=== PATIENT | female | born 1945 | race Caucasian/White ===

== ENCOUNTER 2018-05-09 09:37 | Inpatient (IN) | payer MEDICARE, BC ==
[2018-05-09] MEDS ORDERED: methylPREDNISolone Sod Succ/PF 125 MG/2 ML VIAL ONE (09:58)
[2018-05-09] MEDS ORDERED: Acetaminophen 500 MG TAB ONE (10:00)
[2018-05-09 10:03] LABS: Hemoglobin 13.6 g/dL (12.0-16.0); Mean Corpuscular HGB CONC 34.2 g/dL (32.0-36.0); Mean Corpuscular Hemoglobin 33.2 pg (27.0-31.0); Mean Corpuscular Volume 97.1 fL (78.0-98.0); Mean Platelet Volume 6.8 fL (7.4-10.4); Platelet Count 267 thou/uL (130-400); White Blood Cell (WBC) Count 19.5 thou/uL (4.8-10.8)
[2018-05-09 10:09] LABS: Bilirubin Negative (Negative); Blood, Urine Large (Negative); Clarity TURBID (Clear); Glucose, Urine (Dipstick) Negative (Negative); Leukocyte Large (Negative); Nitrite Negative (Negative); Protein, Urine (Dipstick) 300 mg/dL (Neg-Trace); Specific Gravity, Urine 1.014 (1.002-1.036); Urobilinogen 0.2 mg/dL (0.2-1.0)
--- NOTE | 2018-05-09 10:14 | RAD ---
PORTABLE CHEST ONE VIEW: Date: 05-09-18 Time: 9:49 a.m. History: Fever. FINDINGS: Comparison is made with of 08-25-14. The heart size is borderline. The right hemidiaphragm is elevated. The lungs are well expanded withou t lobar consolidation, pneumothorax, evelia edema, or pleural effusions. Calcified granuloma in the le ft upper lobe is again seen. IMPRESSION: No acute process. POS: OFF
[2018-05-09 10:16] LABS: Pathc Cast-AUWi Flag 48.13 (0-2.49); Yeast-AUWi Flag 155.6 (0-25.0)
[2018-05-09] MEDS ORDERED: Ondansetron HCl/PF 4 MG/2 ML Vial ONE (10:18)
[2018-05-09 10:23] LABS: Band 16 % (5-11); Lymphocytes 14 % (21-51); MDiff Complete? YES; Monocytes 7 % (0-10); Neutrophil 63 % (42-75)
[2018-05-09 10:26] LABS: Bacteria/HPF 4+ HPF (None Seen); Hyaline Casts/LPF NONE SEEN LPF (0-3 Hyaline); Other Casts/LPF None Seen LPF (0-3 Hyaline); RBC/HPF GREATER THAN 50-TNTC HPF (0-3); Yeast-All Forms None Seen HPF (None Seen)
[2018-05-09] MEDS ORDERED: Piperacillin/Tazobactam 3.375 GM VIAL ONE (10:26)
[2018-05-09 10:27] LABS: ALT (SGPT) 89 U/L (8-55); AST (SGOT) 105 U/L (5-34); Alkaline Phosphatase 75 U/L (40-150); Anion Gap 24 mmol/L (10-20); BUN (Urea Nitrogen) 47 mg/dL (9.8-20.1); Bilirubin, Total 1.8 mg/dL (0.2-1.2); CK (CPK) 632 U/L (29-168); Calc. Creatinine Clearance 0 mL/min (70-130); Calcium 10.5 mg/dL (7.8-10.44); Carbon Dioxide 15 mmol/L (23-31); Chloride 98 mmol/L (98-107); Estimated GFR-MDRD 11; Globulin 2.8 g/dL (2.4-3.5); Magnesium 1.2 mg/dL (1.6-2.6); Potassium 4.3 mmol/L (3.5-5.1); Protein, Total 6.8 g/dL (6.0-8.3); Sodium 133 mmol/L (136-145)
[2018-05-09 10:31] LABS: Troponin I 0.043 ng/mL (< 0.028)
[2018-05-09 10:37] LABS: Glucose 57 mg/dL (83-110)
[2018-05-09 10:38] LABS: CKMB 7.6 ng/mL (0-6.6)
[2018-05-09] MEDS ORDERED: Dextrose 50% Abboject 50 ML SYRINGE ONE ×2 (10:47→10:49)
[2018-05-09] MEDS ORDERED: Norepinephrine 8 MG/0.9% NS 250 ML ONE (10:47)
[2018-05-09] MEDS ORDERED: Gentamicin Sulfate 360 MG, Admixture Fee 1 EACH in Sodium Chloride 0.9% 100 ML IVPB SCH (11:00)
--- NOTE | 2018-05-09 11:33 | RAD ---
CHEST ONE VIEW: History: Chest pain. Line placement. Comparison: Earlier exam, same date. FINDINGS: Tip of a right internal jugular central venous catheter projects over the superior vena cava. No evid ence of pneumothorax. Pulmonary vasculature is now more engorged. Defibrillator patches overlie each side of the chest. IMPRESSION: 1. Right internal jugular central venous catheter is in good radiographic position. 2. Pulmonary vascular congestion. POS: [facility]
[2018-05-09 11:46] LABS: Actual Bicarbonate (HCO3a) 11.4 mEq/L (22-28); CO2 Tension 22.3 mmHg (35.0-45.0); O2 Tension (PaO2) 70.1 mmHg (> 70.0); pH, Arterial 7.33 (7.35-7.45)
[2018-05-09] MEDS ORDERED: Sodium Bicarb 50 MEQ/50 ML Abboject 8.4% SYRINGE ONE (11:46)
[2018-05-09] MEDS ORDERED: Sodium Bicarbonate 2.5 MEQ/5 ML VIAL ONE (11:46)
[2018-05-09 11:47] LABS: Analyzer IN Cardio ER; Base Excess (BEa) -12.7 mEq/L (-2.0 to +3.0); Calcium, Ionized 1.1 mmol/L (1.12-1.30); Carboxyhemoglobin (COHb) 0.3 gm% (0.0-3.0); Hemoglobin (Hb) 11.3 g/dL (12.0-16.0); Potassium - ABG Lab 3.5 mmol/L (3.70-5.30)
[2018-05-09 11:48] LABS: ALV-art Gradient 50.915 (0-20); Puncture Site LRA
[2018-05-09] MEDS ORDERED: Loratadine 10 MG TAB PO PRN (12:56)
[2018-05-09] MEDS ORDERED: Ondansetron HCl/PF 4 MG/2 ML Vial IVP PRN (12:56)
[2018-05-09] MEDS ORDERED: cloNIDine 0.1 MG TAB PO PRN (12:56)
[2018-05-09] MEDS ORDERED: Mag-Al 1200 mg/1200 mg/30 ML UDCUP PO PRN (12:56)
[2018-05-09] MEDS ORDERED: hydrALAZINE 20 MG/ML VIAL SLOW IVP PRN (12:56)
[2018-05-09] MEDS ORDERED: Senokot 8.6 MG TAB PO PRN (12:56)
[2018-05-09] MEDS ORDERED: Calcium Carbonate 500 MG ChewTAB PO PRN (12:56)
[2018-05-09] MEDS ORDERED: Diabetic Tussin 200 MG/10 ML UDCUP PO PRN (12:56)
[2018-05-09] MEDS ORDERED: Benzonatate 100 MG CAP PO PRN (12:56)
[2018-05-09] MEDS ORDERED: Bisacodyl 5 MG TAB PO PRN (12:56)
[2018-05-09] MEDS ORDERED: Nitroglycerin 0.4 MG TAB (25 Tab Bottle) SL PRN (12:56)
--- NOTE | 2018-05-09 13:05 | PDOC.PULCN ---
<Raz Price - Last Filed: 05/09/18 13:59> Pulmonology Consult: HPI - Date of Consult Date: 05/09/18 Time: 13:00 - Consult Details Reason for Consult: septic shock Requesting Physician: Maria Guadalupe - History of Present Illness HPI: BASILIO PARRA is a 72 year-old F admitted with septic shock. She has PMH including Unicoi's and Hypothyroidism. She was diagnosed with UTI at acute care yesterday. Then this morning the son found her at home acting lethargic and brought her to the ER. Upon arrival to the ER she passed out while in the wheelchair being transferred into the ED. Patient states she has had nausea and vomiting for 2 days. She denies shortness of breath, chest pain, or abdomenal pain. She had mild diarrhea for the last 2 days. She is A&Ox3 at time of exam. 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) Pulmonology Consult: Meds - Medications MAR Reviewed: Yes Medications: Current Medications Gentamicin Sulfate 360 mg/Miscellaneous Medication 1 each/ Sodium Chloride 109 mls @ 109 mls/hr IVPB NOW RODOLFO Stop: 05/09/18 14:00 - Allergies Allergies/Adverse Reactions: Allergies Allergy/AdvReac Type Severity Reaction Status Date / Time ciprofloxacin [From Cipro] Allergy Verified 08/25/14 09:37 propoxyphene napsylate Allergy Verified 08/25/14 09:37 [From Darvocet-N 100] Pulmonology Consult: PE - Physical Exam Constitutional: NAD Deviation from normal: dry oral mucosa Cardiovascular: RRR, no significant murmur Respiratory: clear to auscultation anteriorly, decreased breath sounds. negative: wheezes Gastrointestinal: soft, non-tender, no distention, positive bowel sounds Musculoskeletal: no edema, pulses present Neurological: non-focal, moves all 4 limbs Psychiatric: A&O x 3 Skin: no rash, cap refill <2 seconds Deviation from normal: moderate skin tenting Pulmonology Consult: Results - Labs Result Diagrams: 05/09/18 09:41 05/09/18 09:41 - ABG Interpretation ABG Results: ABG pH 7.33 (7.35-7.45) L 05/09/18 11:37 ABG pCO2 22.3 mmHg (35.0-45.0) L* 05/09/18 11:37 ABG O2 Sat Calc/Timo 92.7 % (94.0-98.0) L 05/09/18 11:37 ABG Base Excess -12.7 mEq/L (-2.0 to +3.0) L 05/09/18 11:37 Pulmonology Consult: A/P - Time Time: 50% of the time was spent in coordination of care (as documented) at patient's floor/unit and/or counseling patient. Time with Patient: greater than 50 minutes - Plan Plan: This is a critically ill 72 yo F being admitted for septic shock likely caused by adrenal crisis + UTI. 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 8.49, last Cr was 0.74 in 2013 - Dehydration - mag 1.2, replete Infection (Urosepsis) - ceftriaxone - BC, Ucx pending - trend lactic acid Endo (Adrenal Crisis) - Hx of tony's, on prednisone 5mg at home - Hydrocortisone 50mg q6hr - likely main source of hypotension, then exacerbated by UTI Code status: full PPx: heparin Diet: regular Dispo: >2 days <Raji Garcia - Last Filed: 05/09/18 18:45> Pulmonology Consult: HPI - History of Present Illness HPI: BASILIO PARRA is a 72 year-old F Pulmonology Consult: Meds - Medications Medications: Current Medications Acetaminophen (Tylenol) 650 mg PO Q4H PRN PRN Reason: Headache/Fever or Pain Al Hydroxide/Mg Hydroxide (Maalox) 30 ml PO Q6H PRN PRN Reason: Heartburn or Indigestion Albuterol/Ipratropium (Duoneb) 3 ml NEB [id number] PRN PRN Reason: SOB &/or Wheezing Benzonatate (Tessalon) 100 mg PO Q4H PRN PRN Reason: Cough Bisacodyl (Dulcolax) 10 mg PO DAILYPRN PRN PRN Reason: Constipation Calcium Carbonate (Tums) 1,000 mg PO Q4H PRN PRN Reason: Heartburn or Indigestion Clonidine (Catapres) 0.1 mg PO Q4H PRN PRN Reason: Systolic BP > 160 Dextrose/Water (Dextrose 50%) 25 gm SLOW IVP PRN PRN PRN Reason: Hypoglycemia Famotidine (Pepcid) 20 mg PO 2100 RODOLFO Glucagon (Glucagon) 1 mg IM PRN PRN PRN Reason: Hypoglycemia Guaifenesin (Robitussin Sf) 200 mg PO Q4H PRN PRN Reason: Cough Heparin Sodium (Porcine) (Heparin) 5,000 units SC TID [facility] Last Admin: 05/09/18 14:34 Dose: 5,000 units Hydralazine HCl (Apresoline) 10 mg SLOW IVP Q4H PRN PRN Reason: Systolic BP > 170 Hydrocortisone Sodium Succinate (Solu-Cortef) 50 mg IVP Q6HR [facility] Last Admin: 05/09/18 17:04 Dose: 50 mg Sodium Chloride (Normal Saline 0.9%) 1,000 mls @ 125 mls/hr IV .Q8H [facility] Last Admin: 05/09/18 14:24 Dose: 1,000 mls Norepinephrine Bitartrate (Levophed) 250 mls @ 0 mls/hr IVPB PRN PRN; Protocol PRN Reason: To maintain MAP > 65 Last Admin: 05/09/18 17:30 Dose: 250 mls Ceftriaxone Sodium 2 gm/ (Sodium Chloride) 100 mls @ 200 mls/hr IVPB Q24HR [facility] Dextrose/Water (D5w) 1,000 mls @ 0 mls/hr IV .Q0M PRN PRN Reason: Hypoglycemia Potassium Chloride 40 meq/ (Sodium Chloride) 270 mls @ 135 mls/hr IVPB ASDIR PRN PRN Reason: FOR SERUM K+ 2.5 - 3.5 Potassium Chloride 40 meq/ (Device) 100 mls @ 50 mls/hr IVPB ASDIR PRN PRN Reason: FOR SERUM K+ 2.5 - 3.5 Magnesium Sulfate 1 gm/ Sodium (Chloride) 102 mls @ 102 mls/hr IV PRN PRN PRN Reason: MAG LEVEL 1.4 - 2.0 Magnesium Sulfate 2 gm/ Device 100 mls @ 100 mls/hr IVPB ASDIR PRN PRN Reason: MAGNESIUM < 1.4 Potassium Phosphate 9 mmol/ (Sodium Chloride) 103 mls @ 25.75 mls/hr IVPB ASDIR PRN PRN Reason: Phosphate 1.0-1.8 Potassium Phosphate 12 mmol/ (Sodium Chloride) 254 mls @ 63.5 mls/hr IV ASDIR PRN PRN Reason: Serum phosphate 0.5-0.9 Potassium Phosphate 15 mmol/ (Sodium Chloride) 255 mls @ 63.75 mls/hr IV ASDIR PRN PRN Reason: Serum Phos < 0.5 Levothyroxine Sodium (Synthroid) 75 mcg PO 0600 RODOLFO Loratadine (Claritin) 10 mg PO DAILYPRN PRN PRN Reason: Sinus Symptoms Magnesium Oxide (Magnesium Oxide) 400 mg PO BIDPRN PRN PRN Reason: FOR SERUM MAG 1.4 - 2.0 Magnesium Oxide (Magnesium Oxide) 800 mg PO PRN PRN PRN Reason: FOR SERUM MAG < 1.4 Miscellaneous Medication (Phos-Nak) 1 pkt PO TIDPRN PRN PRN Reason: FOR PHOS LEVEL 1.0 - 1.8 Miscellaneous Medication (Phos-Nak) 2 pkt PO TIDPRN PRN PRN Reason: FOR PHOS LEVEL 0.5 - 1.0 Nitroglycerin (Nitrostat) 0.4 mg SL Q5MIN PRN PRN Reason: Chest Pain Ccu Electrolyte (Replacement Protocol) 0 each FS PRN PRN PRN Reason: FOR ELECTROLYTE REPLACEMENT Ondansetron HCl (Zofran) 4 mg IVP Q6H PRN PRN Reason: Nausea/Vomiting Last Admin: 05/09/18 17:14 Dose: 4 mg Potassium Chloride (K-Dur) 40 meq PO ASDIR PRN PRN Reason: FOR SERUM K+ 2.5 - 3.5 Potassium Chloride (Klor-Con) 40 meq PER TUBE ASDIR PRN PRN Reason: FOR SERUM K+ 2.5-3.5 Senna (Senokot) 2 tab PO HSPRN PRN PRN Reason: Constipation Tramadol HCl (Ultram) 50 mg PO Q4H PRN PRN Reason: Moderate Pain (4-6) Last Admin: 05/09/18 17:13 Dose: 50 mg Pulmonology Consult: Results - Labs Result Diagrams: 05/09/18 09:41 05/09/18 09:41 - ABG Interpretation ABG Results: ABG pH 7.33 (7.35-7.45) L 05/09/18 11:37 ABG pCO2 22.3 mmHg (35.0-45.0) L* 05/09/18 11:37 ABG O2 Sat Calc/Timo 92.7 % (94.0-98.0) L 05/09/18 11:37 ABG Base Excess -12.7 mEq/L (-2.0 to +3.0) L 05/09/18 11:37 Pulmonology Consult: A/P - Time Time: 50% of the time was spent in coordination of care (as documented) at patient's floor/unit and/or counseling patient. Attending Addendum - Attending Addendum Date/Time: 05/09/181844 I personally evaluated the patient and discussed the management with Dr. Price I agree with the History, Examination, Assessment and Plan documented above with any addition or exceptions noted below. 70 minutes have been devoted to this patient in various activities. I personally reviewed all imaging studies and laboratory data noted within this document. For 50% of this time, I was interacting with the patient at bedside or coordinating care with the care team. For the remainder of the time, I was immediately available to the patient in the hospital unit.
[2018-05-09 13:15] LABS: Troponin I 0.033 ng/mL (< 0.028)
[2018-05-09] MEDS ORDERED: cefTRIAXone\\ROCEPHIN 2 GM in Sodium Chloride 0.9% 100 ML IVPB SCH (13:15)
[2018-05-09] MEDS ORDERED: Hydrocortisone Sod Succ/PF 50 MG in Sodium Chloride 0.9% 50 ML IVPB SCH (13:15)
[2018-05-09] MEDS ORDERED: CCU Electrolyte Replacement 1 EACH IVPB ONE (13:26)
[2018-05-09] MEDS ORDERED: Activase 2 MG VIAL CATH SCH (13:30)
[2018-05-09] MEDS ORDERED: Dextrose 50% Abboject 50 ML SYRINGE SLOW IVP PRN (14:01)
[2018-05-09] MEDS ORDERED: Dextrose 5% in Water 1,000 ML IV PRN (14:01)
[2018-05-09 14:23] LABS: Lactic Acid 3.2 mmol/L (0.5-2.2)
[2018-05-09] MEDS: Sodium Chloride 0.9% 1,000 ML IV SCH ×2 (14:24→20:33)
[2018-05-09] MEDS: Heparin 5,000 UNITS/ML VIAL SC SCH ×2 (14:34→20:32)
[2018-05-09] MEDS ORDERED: CCU Electrolyte Replacement 1 EACH FS ONE (14:50)
[2018-05-09] MEDS ORDERED: Potassium Chloride 20 MEQ TAB PO PRN (14:54)
[2018-05-09] MEDS ORDERED: Potassium Chloride 40 MEQ in Premix Bag 1 BAG IVPB PRN (14:54)
[2018-05-09] MEDS ORDERED: Potassium Phosphate 12 MMOL in Sodium Chloride 0.9% 250 ML 250 ML IV PRN (14:54)
[2018-05-09] MEDS ORDERED: Magnesium 2 GM/NS 0.9% 100 ML 2 GM in Premix Bag 1 BAG IVPB PRN (14:54)
[2018-05-09] MEDS ORDERED: Potassium Chloride 40 MEQ in Sodium Chloride 0.9% 250 ML 250 ML IVPB PRN (14:54)
[2018-05-09] MEDS ORDERED: Potassium Phosphate 9 MMOL in Sodium Chloride 0.9% 100 ML IVPB PRN (14:54)
[2018-05-09] MEDS ORDERED: CCU ELECTROLYTE REPLACEMENT PROTOCOL FS PRN (14:54)
[2018-05-09] MEDS ORDERED: Potassium Phosphate 15 MMOL in Sodium Chloride 0.9% 250 ML 250 ML IV PRN (14:54)
[2018-05-09] MEDS ORDERED: Magnesium Oxide 400 MG TAB PO PRN ×2 (14:54)
--- NOTE | 2018-05-09 15:37 | HP ---
DATE OF ADMISSION: 05/09/2018 PRIMARY CARE PHYSICIAN: Elvia Rebollar M.D. CHIEF COMPLAINT: Lethargy and urinary tract infection. HISTORY OF PRESENT ILLNESS: Ms. Pinon is a pleasant 72-year-old female with history of Lawrence's di sease and hypothyroidism, who presented to the emergency room with the above-mentioned complaint. Hi story is mainly obtained by the patient herself who is still not feeling very well. Electronic medic al records have been reviewed and the case has been discussed with emergency room physician, Dr. Claudia rousseau. Ms. Pinon reported that she has recently been treated for a urinary tract infection and finished ant ibiotics about 2 weeks ago. For the last week or so, she started to feel severe pain and pressure in her suprapubic region and has been having on and off subjective fevers and chills. She has been fee ling poorly with poor appetite and increased weakness. She was found to be very lethargic by her son this morning and he brought her to the emergency room. En route to the ER, she passed out. The pat [facility] also reports that she has had multiple episodes of vomiting in the last 2 days or so. Upon arri laquita, she was altered and hypotensive. She was tachycardic to 115 and her initial blood pressure was in the 50s over 40s. She was emergently resuscitated with IV fluids and was started on pressors with norepinephrine. Blood work was done which showed leukocytosis with WBCs of 19.5 with 16% bands. [facility] chemistries showed lactic acidosis with lactic acid of 7.5, acute renal insufficiency with creati nine of 3.99 resulting GFR 11 as well as elevated CK 632. Her urinalysis was consistent with signifi cant urinary tract infection. She underwent chest x-ray which did not show any evidence of pneumonia or congestion. She was given empiric IV antibiotic in the form of gentamicin, vancomycin and Zosyn in the emergency room. She improved quite a bit and is back to baseline with her mentation. She is awake, alert, oriented x3, though still feels poorly and very weak. She is now being admitted to the hospital with sepsis and septic shock with acute renal failure and u rinary tract infection. She has also received a dose of Solu-Medrol in the emergency room. Otherwise, she denies any other recent illnesses. 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 PAST MEDICAL HISTORY: 1. Berks's disease. 2. Hypothyroidism. 3. Asthma. PAST SURGICAL HISTORY: 1. section x2. 2. Cholecystectomy in 1970s. 3. Hysterectomy. 4. Tonsillectomy. 5. Ablation for PVCs. ALLERGIES: PROPOXYPHENE and CIPROFLOXACIN. CURRENT MEDICATIONS: As follows: Levothyroxine 75 mcg daily and prednisone 5 mg daily. FAMILY HISTORY: Father with GA at the age of 36. 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 She is very independent with her ADLs and IADLs. Lives with family. No history of drug, tobacco or alcohol abuse. REVIEW OF SYSTEMS: A 12-point review of systems is done, it is negative except for those mentioned i n the history and physical. LABORATORY DATA: As above. ABGs were also done which showed pH of 7.33, pCO2 of 22, oxygen 70. Ser um chemistry shows sodium of 133, bicarbonate 15, anion gap 24, BUN 47, creatinine 3.99. Initial blo od sugar 57. Lactic acid 7.5. Calcium 10.5, magnesium 1.2, total bilirubin 1.8, AST 105, ALT 89, CK -MB 7.6, troponin 0.043, then 0.033. TSH normal. Urinalysis has multiple bacteria, wbc's, leukocyte esterase and blood. Chest x-ray by my review has no evidence to suggest pleural effusion, edema or infiltrate. PHYSICAL EXAMINATION: VITAL SIGNS: Most recent vital signs, temperature 98.6, pulse of 87, respirations 17, saturating 100 % on 3 liters nasal cannula, blood pressure 102/47. GENERAL: She appears very pale, weak and sick, but awake, alert, oriented x3. HEENT: Mucous membrane is very dry. No oropharyngeal exudate or erythema. Head is normocephalic, a traumatic. Pupils equal, reactive to light and accommodation. Extraocular movement intact. NECK: Supple without any lymphadenopathy, JVD or bruit. CHEST: Clear to auscultation without any wheezing, rales or rhonchi. Rhythm is regular without any murmur, rubs or gallops. ABDOMEN: Soft, nontender, nondistended, positive bowel sounds. Mild suprapubic tenderness is notice d. SKIN: Free of any rashes or bruises. Feels warm and dry to touch. PSYCHIATRIC: Normal affect. IMPRESSION AND PLAN: 1. Sepsis with septic shock. The patient has been adequately resuscitated with 2 liters of IV fluid s in the emergency room and she failed to respond to that. Since then, she has been started on IV no repinephrine, which we will continue and titrate to keep MAP over 65. We will continue intravenous f luids for now and admit her to critical care unit and request consultation with Critical Care physici an, Dr. Garcia, as well. Source is likely urinary tract infection. She will be treated with broad- spectrum IV antibiotics and we will follow the results of the urine and blood culture. The patient m ost likely is also bacteremic. Stat echocardiogram was done in the emergency room, and we will follo w the results of that. The patient herself denies any cardiac history. We will also continue IV lily roids in the form of IV Solu-Medrol given her history of Lawrence's disease and acute adrenal insuffic iency in the light of sepsis. 2. Acute renal insufficiency secondary to #1. The patient's baseline creatinine just last week was 0.93. She will be continued on IV fluids and we will monitor renal function on a daily basis. We wi ll avoid any nephrotoxic medication. 3. Anion gap metabolic acidosis. This is secondary to extreme dehydration, poor p.o. intake, renal failure and sepsis. Continue IV fluid hydration. The patient has received 1 dose of IV bicarbonate in the emergency room. 4. Lactic acidosis. This is secondary to severe sepsis. Repeat lactic acid is 3.2. Continue IV fl uids and IV antibiotics. 5. Rhabdomyolysis, likely secondary to ongoing illness and bed bound status. Recheck in the morning and continue IV fluid resuscitation. 6. Hypomagnesemia. We will replace and recheck in the morning. 7. Elevated liver enzymes. We will continue to trend the liver enzymes and if they do not start to go down, we will obtain a right upper quadrant ultrasound. 8. Elevated troponin. This is likely demand ischemia from ongoing severe sepsis. Echocardiogram yoo s been ordered and we will follow the serial cardiac enzymes for now. 9. Hypothyroidism. We will resume her home medications. TSH was checked and was normal. 10. Berks's disease. The patient will be on IV steroids for the acute crisis at this time. 11. Code status: FULL CODE. Discussed with the patient and her son in detail at bedside. 12. Deep venous thrombosis and gastrointestinal prophylaxis and p.r.n. medication orders. DISPOSITION: Ms. Pnion is currently being admitted to the hospital in the critical care unit for se jaye sepsis with acute renal failure and septic shock. Estimated length of stay at this time is 2-3 midnights. Total time spent in the care of this critically ill patient is 45 minutes.
[2018-05-09 16:12] LABS: Troponin I 0.058 ng/mL (< 0.028)
[2018-05-09] MEDS: Hydrocortisone Sod Succ/PF 100 mg/2 ml Vial IVP SCH ×2 (17:04→23:45)
[2018-05-09] MEDS: traMADol HCl 50 MG TAB PO PRN (17:13)
[2018-05-09] MEDS: Ondansetron HCl/PF 4 MG/2 ML Vial IVP PRN (17:14)
[2018-05-09] MEDS: Norepinephrine 8 MG/0.9% NS 250 ML IVPB PRN (17:30)
[2018-05-09] MEDS: Famotidine 20 MG TAB PO SCH (20:32)
[2018-05-10] MEDS: traMADol HCl 50 MG TAB PO PRN ×2 (01:30→18:33)
[2018-05-10 03:59] LABS: ALT (SGPT) 93 U/L (8-55); AST (SGOT) 100 U/L (5-34); Albumin 3.1 g/dL (3.4-4.8); Alkaline Phosphatase 83 U/L (40-150); Anion Gap 12 mmol/L (10-20); BUN (Urea Nitrogen) 32 mg/dL (9.8-20.1); Bilirubin, Total 1.2 mg/dL (0.2-1.2); Calc. Creatinine Clearance 21 mL/min (70-130); Carbon Dioxide 19 mmol/L (23-31); Chloride 107 mmol/L (98-107); Estimated GFR-MDRD 19; Globulin 2.2 g/dL (2.4-3.5); Glucose 263 mg/dL (83-110); Magnesium 1.1 mg/dL (1.6-2.6); Potassium 4.8 mmol/L (3.5-5.1); Protein, Total 5.3 g/dL (6.0-8.3); Sodium 133 mmol/L (136-145)
[2018-05-10 04:39] LABS: Band 16 % (5-11); Hemoglobin 10.9 g/dL (12.0-16.0); Hypochromia SLIGHT = 6-15 cells (100X) (0-5/hpf); Lymphocytes 1 % (21-51); MDiff Complete? YES; Mean Corpuscular HGB CONC 35.7 g/dL (32.0-36.0); Mean Corpuscular Hemoglobin 34.3 pg (27.0-31.0); Mean Corpuscular Volume 96.1 fL (78.0-98.0); Mean Platelet Volume 6.4 fL (7.4-10.4); Monocytes 8 % (0-10); Neutrophil 75 % (42-75); PLT Morphology Comment Appears Adequate; Platelet Count 243 thou/uL (130-400); Red Blood Cell (RBC) Count 3.19 mill/uL (4.20-5.40); White Blood Cell (WBC) Count 24.8 thou/uL (4.8-10.8)
[2018-05-10] MEDS: Levothyroxine Sodium 75 MCG TAB PO SCH (05:35)
[2018-05-10] MEDS: Hydrocortisone Sod Succ/PF 100 mg/2 ml Vial IVP SCH ×3 (05:35→18:10)
[2018-05-10] MEDS: Sodium Chloride 0.9% 1,000 ML IV SCH ×4 (05:36→20:34)
[2018-05-10] MEDS: Acetaminophen 325 MG TAB PO PRN (05:36)
--- NOTE | 2018-05-10 07:50 | PRG ---
DATE OF SERVICE: 05/10/2018 SERVICE: Pulmonary Medicine INTERVAL HISTORY: The patient is doing fine from a respiratory standpoint. She denies any current c hest pain or vomiting overnight. She continues to have a little bit of nausea. That being said, she is tolerating some p.o. There has been no other interval change to her condition. PHYSICAL EXAMINATION: VITAL SIGNS: Afebrile, pulse 79, blood pressure 127/55, respirations 14, saturation 100% on 1 liter nasal cannula. GENERAL: The patient is awake, alert, in no apparent distress. LUNGS: Decent air entry. There is some dependent crackles present, but no rhonchi or wheezing appre ciated. HEART: Normal rate, regular. ABDOMEN: Soft, nontender, nondistended. Bowel sounds are positive. MUSCULOSKELETAL: No cyanosis or clubbing. There is no pitting in the bilateral lower extremities. NEUROLOGIC: Grossly nonfocal. LABORATORY DATA: WBC 24.8, hemoglobin 10.9, platelets 243,000. Neutrophil count is up trending with a stable band count. Creatinine 2.53, beautifully down trending, anion gap 12, which has resolved, bicarbonate 19, which is improved, sodium 133 and stable. AST and ALT are roughly stable. Lactate 3 .2, beautifully down trending, cardiac enzymes are gently up trending. Urinalysis is consistent with a possible urinary tract infection. She has 2 out of 2 blood cultures positive for gram negative ro d, one of which is growing E. coli. IMAGING: Chest x-ray demonstrates a right IJ central venous catheter is in good position. There is no obvious acute cardiopulmonary abnormality identified. Interstitial markings are prominent, likely accentuated by low lung volumes. ASSESSMENT: 1. Septic shock secondary to Escherichia coli. 2. Bacteremia secondary to Escherichia coli. 3. Urinary tract infection. 4. Adrenal crisis. DISCUSSION AND PLAN: We will continue antibiotics and steroids. We will wean away the Levophed. On ce she is off of this medication, she can be transitioned out of the ICU to the telemetry unit. The elevated troponins are likely secondary to demand ischemia. Pulmonary will follow while she remains in the ICU, but when she transitions the floor, we will sign off.
[2018-05-10] MEDS ORDERED: Magnesium Sulfate 2 GM in Sodium Chloride 0.9% 100 ML IVPB PRN (08:30)
[2018-05-10] MEDS ORDERED: Dextrose 50% Abboject 50 ML SYRINGE SLOW IVP PRN (08:31)
[2018-05-10] MEDS ORDERED: Dextrose 5% in Water 1,000 ML IV PRN (08:31)
[2018-05-10] MEDS ORDERED: Enoxaparin Sodium 30 MG/0.3 ML SYRINGE SC SCH (09:00)
--- NOTE | 2018-05-10 09:01 | RAD ---
CHEST 1 VIEW: Date: 05/10/18 HISTORY: Chest pain. Dyspnea. COMPARISON: 05/09/18. FINDINGS: Cardiac silhouette is magnified by projection. Pulmonary vasculature upper limits of normal. Patchy r ight basilar infiltrate is stable. Right internal jugular central venous catheter remains in place. C alcified granulomata are consistent with healed granulomatous disease. IMPRESSION: Patchy right basilar infiltrate and other findings are stable. POS: [facility]
[2018-05-10] MEDS: cefTRIAXone\\ROCEPHIN 2 GM in Sodium Chloride 0.9% 100 ML IVPB SCH (09:07)
[2018-05-10] MEDS: Heparin 5,000 UNITS/ML VIAL SC SCH ×3 (09:08→20:33)
[2018-05-10] MEDS: Ondansetron HCl/PF 4 MG/2 ML Vial IVP PRN (09:08)
[2018-05-10] MEDS ORDERED: hydrALAZINE 20 MG/ML VIAL SLOW IVP PRN (09:34)
[2018-05-10] MEDS ORDERED: cloNIDine 0.1 MG TAB PO PRN (09:35)
[2018-05-10] MEDS: HumaLOG 300 UNITS/3 ML VIAL SC PRN ×5 (10:01→20:33)
[2018-05-10] MEDS: Norepinephrine 8 MG/0.9% NS 250 ML IVPB PRN (12:53)
--- NOTE | 2018-05-10 17:44 | PDOC.PN ---
- Subjective Encounter Start Date: 05/10/18 Encounter Start Time: 09:40 Pt sen for followup re: sepsis. Feels better. Denies chest pain, shortness of breath, fevers or chills. - Objective Resuscitation Status: Resuscitation Status FULL:Full Resuscitation MAR Reviewed: Yes Vital Signs & Weight: Vital Signs (12 hours) Temp Pulse Pulse Pulse Resp BP BP 05/10/18 15:12 76 17 05/10/18 12:43 114/57 L 05/10/18 12:01 97.7 F 75 16 05/10/18 10:24 74 65 114/51 L 104/56 L 05/10/18 09:35 66 16 05/10/18 08:00 97.5 F L 66 16 Pulse Ox Pulse Ox 05/10/18 15:12 05/10/18 12:43 99 05/10/18 12:01 97 05/10/18 10:24 05/10/18 09:35 100 05/10/18 08:00 100 Weight Weight 155 lb 9.6 oz Most Recent Monitor Data Heart Rate from ECG 82 NIBP 108/57 NIBP BP-Mean 65 Respiration from ECG 17 SpO2 95 I&O: 05/09/18 05/10/18 05/11/18 06:59 06:59 06:59 Intake Total 5259 670 Output Total 4140 475 Balance 1119 195 Result Diagrams: 05/10/18 03:24 05/10/18 03:24 Additional Labs: Accuchecks 05/10/18 05/10/18 05/09/18 12:06 09:12 21:07 POC Glucose 200 H 205 H 222 H EKG Reviewed by me: Yes (Tele: NSR) Phys Exam - Physical Examination Constitutional: NAD HEENT: moist MMs, sclera anicteric, oral pharynx no lesions, 2+ tonsils Neck: no nodes, no JVD, supple, full ROM Respiratory: no wheezing, no rales, no rhonchi, clear to auscultation bilateral Cardiovascular: RRR, no rub S1, S2 Gastrointestinal: soft, non-tender, no distention, positive bowel sounds Neurological: moves all 4 limbs Psychiatric: normal affect, A&O x 3 Dx/Plan (1) Septic shock Code(s): A41.9 - SEPSIS, UNSPECIFIED ORGANISM; R65.21 - SEVERE SEPSIS WITH SEPTIC SHOCK Status: Acute Comment: Improving, due to UTI and bacteremia. (2) Bacteremia Code(s): R78.81 - BACTEREMIA Status: Acute Comment: continue IV ceftriaxone (3) UTI (urinary tract infection) Status: Acute Comment: continue IV ceftriaxone (4) [place] disease Code(s): E27.1 - PRIMARY ADRENOCORTICAL INSUFFICIENCY Status: Chronic Comment: continue IV steroids (5) Hypothyroidism Code(s): E03.9 - HYPOTHYROIDISM, UNSPECIFIED Status: Chronic Comment: stable (6) Asthma Code(s): J45.909 - UNSPECIFIED ASTHMA, UNCOMPLICATED Status: Chronic Comment : stable - Plan * . Review of Systems - Review of Systems Constitutional: negative: fever, chills, sweats, weakness, malaise Respiratory: negative: Cough, Shortness of Breath, SOB with Excertion, Pleuritic Pain, Wheezing Cardiovascular: negative: chest pain, palpitations, orthopnea, paroxysmal nocturnal dyspnea, edema, light headedness Gastrointestinal: negative: Nausea, Vomiting, Abdominal Pain, Diarrhea, Constipation, Melena, Hematochezia Genitourinary: negative: Dysuria, Frequency, Incontinence, Hematuria, Retention Skin: negative: Rash, Lesions, Josue, Bruising - Medications/Allergies Allergies/Adverse Reactions: Allergies Allergy/AdvReac Type Severity Reaction Status Date / Time ciprofloxacin [From Cipro] Allergy Verified 08/25/14 09:37 propoxyphene napsylate Allergy Verified 08/25/14 09:37 [From Darvocet-N 100] Medications: Current Medications Acetaminophen (Tylenol) 650 mg PO Q4H PRN PRN Reason: Headache/Fever or Pain Last Admin: 05/10/18 05:36 Dose: 650 mg Al Hydroxide/Mg Hydroxide (Maalox) 30 ml PO Q6H PRN PRN Reason: Heartburn or Indigestion Albuterol/Ipratropium (Duoneb) 3 ml NEB [id number] PRN PRN Reason: SOB &/or Wheezing Last Admin: 05/10/18 15:12 Dose: 3 ml Benzonatate (Tessalon) 100 mg PO Q4H PRN PRN Reason: Cough Bisacodyl (Dulcolax) 10 mg PO DAILYPRN PRN PRN Reason: Constipation Calcium Carbonate (Tums) 1,000 mg PO Q4H PRN PRN Reason: Heartburn or Indigestion Clonidine (Catapres) 0.1 mg PO Q4H PRN PRN Reason: Systolic BP > 160 Dextrose/Water (Dextrose 50%) 25 gm SLOW IVP PRN PRN PRN Reason: Hypoglycemia Famotidine (Pepcid) 20 mg PO 2100 COUNTS INCLUDE 234 BEDS AT THE [facility] Last Admin: 05/09/18 20:32 Dose: 20 mg Glucagon (Glucagon) 1 mg IM PRN PRN PRN Reason: Hypoglycemia Guaifenesin (Robitussin Sf) 200 mg PO Q4H PRN PRN Reason: Cough Heparin Sodium (Porcine) (Heparin) 5,000 units SC TID COUNTS INCLUDE 234 BEDS AT THE [facility] Last Admin: 05/10/18 15:42 Dose: 5,000 units Hydralazine HCl (Apresoline) 10 mg SLOW IVP Q4H PRN PRN Reason: Systolic BP > 170 Hydrocortisone Sodium Succinate (Solu-Cortef) 50 mg IVP Q6HR COUNTS INCLUDE 234 BEDS AT THE [facility] Last Admin: 05/10/18 12:27 Dose: 50 mg Norepinephrine Bitartrate (Levophed) 250 mls @ 0 mls/hr IVPB PRN PRN; Protocol PRN Reason: To maintain MAP > 65 Last Admin: 05/10/18 12:53 Dose: 250 mls Ceftriaxone Sodium 2 gm/ (Sodium Chloride) 100 mls @ 200 mls/hr IVPB Q24HR COUNTS INCLUDE 234 BEDS AT THE [facility] Last Admin: 05/10/18 09:07 Dose: 100 mls Dextrose/Water (D5w) 1,000 mls @ 0 mls/hr IV .Q0M PRN PRN Reason: Hypoglycemia Potassium Chloride 40 meq/ (Sodium Chloride) 270 mls @ 135 mls/hr IVPB ASDIR PRN PRN Reason: FOR SERUM K+ 2.5 - 3.5 Potassium Chloride 40 meq/ (Device) 100 mls @ 50 mls/hr IVPB ASDIR PRN PRN Reason: FOR SERUM K+ 2.5 - 3.5 Magnesium Sulfate 1 gm/ Sodium (Chloride) 102 mls @ 102 mls/hr IV PRN PRN PRN Reason: MAG LEVEL 1.4 - 2.0 Potassium Phosphate 9 mmol/ (Sodium Chloride) 103 mls @ 25.75 mls/hr IVPB ASDIR PRN PRN Reason: Phosphate 1.0-1.8 Potassium Phosphate 12 mmol/ (Sodium Chloride) 254 mls @ 63.5 mls/hr IV ASDIR PRN PRN Reason: Serum phosphate 0.5-0.9 Potassium Phosphate 15 mmol/ (Sodium Chloride) 255 mls @ 63.75 mls/hr IV ASDIR PRN PRN Reason: Serum Phos < 0.5 Sodium Chloride (Normal Saline 0.9%) 1,000 mls @ 75 mls/hr IV .[id number] RODOLFO Last Admin: 05/10/18 15:48 Dose: Not Given Magnesium Sulfate 2 gm/ Sodium (Chloride) 104 mls @ 104 mls/hr IVPB ASDIR PRN PRN Reason: MAGNESIUM < 1.4 Last Admin: 05/10/18 09:08 Dose: 104 mls Insulin Human Lispro (Humalog) 0 units SC .MILD SLIDING SCALE PRN PRN Reason: Mild Correctional Scale Last Admin: 05/10/18 16:25 Dose: 4 units Levothyroxine Sodium (Synthroid) 75 mcg PO 0600 RODOLFO Last Admin: 05/10/18 05:35 Dose: 75 mcg Loratadine (Claritin) 10 mg PO DAILYPRN PRN PRN Reason: Sinus Symptoms Magnesium Oxide (Magnesium Oxide) 400 mg PO BIDPRN PRN PRN Reason: FOR SERUM MAG 1.4 - 2.0 Magnesium Oxide (Magnesium Oxide) 800 mg PO PRN PRN PRN Reason: FOR SERUM MAG < 1.4 Miscellaneous Medication (Phos-Nak) 1 pkt PO TIDPRN PRN PRN Reason: FOR PHOS LEVEL 1.0 - 1.8 Miscellaneous Medication (Phos-Nak) 2 pkt PO TIDPRN PRN PRN Reason: FOR PHOS LEVEL 0.5 - 1.0 Nitroglycerin (Nitrostat) 0.4 mg SL Q5MIN PRN PRN Reason: Chest Pain Ccu Electrolyte (Replacement Protocol) 0 each FS PRN PRN PRN Reason: FOR ELECTROLYTE REPLACEMENT Ondansetron HCl (Zofran) 4 mg IVP Q6H PRN PRN Reason: Nausea/Vomiting Last Admin: 05/10/18 09:08 Dose: 4 mg Potassium Chloride (K-Dur) 40 meq PO ASDIR PRN PRN Reason: FOR SERUM K+ 2.5 - 3.5 Potassium Chloride (Klor-Con) 40 meq PER TUBE ASDIR PRN PRN Reason: FOR SERUM K+ 2.5-3.5 Senna (Senokot) 2 tab PO HSPRN PRN PRN Reason: Constipation Tramadol HCl (Ultram) 50 mg PO Q4H PRN PRN Reason: Moderate Pain (4-6) Last Admin: 05/10/18 01:30 Dose: 50 mg
[2018-05-10] MEDS: Famotidine 20 MG TAB PO SCH (20:34)
[2018-05-10] MEDS ORDERED: diphenhydrAMINE 25 MG CAP PO SCH (22:30)
[2018-05-11] MEDS: Hydrocortisone Sod Succ/PF 100 mg/2 ml Vial IVP SCH ×5 (00:25→23:20)
[2018-05-11 05:54] LABS: ALT (SGPT) 78 U/L (8-55); AST (SGOT) 70 U/L (5-34); Alkaline Phosphatase 101 U/L (40-150); Anion Gap 13 mmol/L (10-20); BUN (Urea Nitrogen) 26 mg/dL (9.8-20.1); Bilirubin, Total 0.4 mg/dL (0.2-1.2); Calc. Creatinine Clearance 32 mL/min (70-130); Calcium 7.4 mg/dL (7.8-10.44); Carbon Dioxide 18 mmol/L (23-31); Chloride 109 mmol/L (98-107); Estimated GFR-MDRD 29; Globulin 2.3 g/dL (2.4-3.5); Glucose 150 mg/dL (83-110); Potassium 4.3 mmol/L (3.5-5.1); Protein, Total 5.3 g/dL (6.0-8.3); Sodium 136 mmol/L (136-145)
[2018-05-11] MEDS: Levothyroxine Sodium 75 MCG TAB PO SCH (06:12)
[2018-05-11 06:27] LABS: Band 30 % (5-11); Hemoglobin 9.4 g/dL (12.0-16.0); Lymphocytes 6 % (21-51); MDiff Complete? YES; Mean Corpuscular HGB CONC 34.7 g/dL (32.0-36.0); Mean Corpuscular Hemoglobin 33.7 pg (27.0-31.0); Mean Corpuscular Volume 97.1 fL (78.0-98.0); Mean Platelet Volume 6.7 fL (7.4-10.4); Monocytes 5 % (0-10); Neutrophil 59 % (42-75); PLT Morphology Comment Appears Adequate; Platelet Count 215 thou/uL (130-400); RBC Distribution Width 12.3 % (11.5-14.5); Red Blood Cell (RBC) Count 2.77 mill/uL (4.20-5.40); White Blood Cell (WBC) Count 17.1 thou/uL (4.8-10.8)
[2018-05-11] MEDS: cefTRIAXone\\ROCEPHIN 2 GM in Sodium Chloride 0.9% 100 ML IVPB SCH (08:48)
[2018-05-11] MEDS: Heparin 5,000 UNITS/ML VIAL SC SCH ×3 (08:49→21:15)
[2018-05-11] MEDS: HumaLOG 300 UNITS/3 ML VIAL SC PRN (12:05)
[2018-05-11] MEDS: Piperacillin/Tazobactam 3.375 GM in Sodium Chloride 0.9% 100 ML IVPB SCH ×3 (13:28→23:20)
--- NOTE | 2018-05-11 16:10 | PDOC.PN ---
- Subjective Encounter Start Date: 05/11/18 Encounter Start Time: 16:08 Patient seen and examined. Not in acute distress. Spoke to patient's nurse who states that patient's BP has been stable at 100's systolic. No acute overnight events. - Objective Resuscitation Status: Resuscitation Status FULL:Full Resuscitation MAR Reviewed: Yes Vital Signs & Weight: Vital Signs (12 hours) Temp Pulse Resp Pulse Ox 05/11/18 13:52 76 19 98 05/11/18 12:00 97.9 F 05/11/18 08:00 98.0 F 89 15 96 05/11/18 07:00 98.0 F 05/11/18 05:13 76 16 98 Weight Weight 155 lb 9.6 oz Most Recent Monitor Data Heart Rate from ECG 88 NIBP 100/57 NIBP BP-Mean 83 Respiration from ECG 19 SpO2 97 I&O: 05/10/18 05/11/18 05/12/18 06:59 06:59 06:59 Intake Total 5259 3867.1 1060 Output Total 4140 1550 732 Balance 1119 2317.1 328 Result Diagrams: 05/11/18 05:12 05/11/18 05:12 Additional Labs: Accuchecks 05/11/18 05/10/18 05/10/18 11:51 20:30 17:53 POC Glucose 154 H 271 H 264 H Phys Exam - Physical Examination Constitutional: NAD HEENT: PERRLA, moist MMs has a central line at right neck Neck: no JVD Respiratory: no wheezing, no rales, no rhonchi, clear to auscultation bilateral Cardiovascular: RRR, no significant murmur, no rub Gastrointestinal: soft, non-tender, no distention, positive bowel sounds Musculoskeletal: no edema, pulses present Neurological: non-focal, normal sensation, moves all 4 limbs Psychiatric: normal affect, A&O x 3 Skin: no rash, normal turgor, cap refill <2 seconds Dx/Plan (1) Bacteremia Code(s): R78.81 - BACTEREMIA Status: Acute Comment: switched from rocephin to zosyn since it has bigger coverage and potency. will continue IVF (2) Septic shock Code(s): A41.9 - SEPSIS, UNSPECIFIED ORGANISM; R65.21 - SEVERE SEPSIS WITH SEPTIC SHOCK Status: Acute Comment: Resolving. Patient is of pressors at this time. will transfer patient to Telemetry. Continue IVF, continue antibiotics (3) UTI (urinary tract infection) Status: Acute Comment: continue IV antibiotics (4) [place] disease Code(s): E27.1 - PRIMARY ADRENOCORTICAL INSUFFICIENCY Status: Chronic Comment: continue IV steroids (5) Asthma Code(s): J45.909 - UNSPECIFIED ASTHMA, UNCOMPLICATED Status: Chronic Comment : stable (6) Hypothyroidism Code(s): E03.9 - HYPOTHYROIDISM, UNSPECIFIED Status: Chronic Comment: stable (7) [place] crisis Status: Acute Comment: continue steriods (8) SHAHID (acute kidney injury) Code(s): N17.9 - ACUTE KIDNEY FAILURE, UNSPECIFIED Status: Acute Comment: Nephro consulted. continue IV fluids. - Plan * . Review of Systems - Review of Systems Constitutional: negative: fever, chills, sweats, weakness, malaise, other Eyes: negative: Pain, Vision Change, Conjunctivae Inflammation, Eyelid Inflammation, Redness, Other ENT: negative: Ear Pain, Ear Discharge, Nose Pain, Nose Discharge, Nose Congestion, Mouth Pain, Mouth Swelling, Throat Pain, Throat Swelling, Other Respiratory: negative: Cough, Dry, Shortness of Breath, Hemoptysis, SOB with Excertion, Pleuritic Pain, Sputum, Wheezing Cardiovascular: negative: chest pain, palpitations, orthopnea, paroxysmal nocturnal dyspnea, edema, light headedness, other Gastrointestinal: negative: Nausea, Vomiting, Abdominal Pain, Diarrhea, Constipation, Melena, Hematochezia, Other Genitourinary: negative: Dysuria, Frequency, Incontinence, Hematuria, Retention , Other Musculoskeletal: negative: Neck Pain, Shoulder Pain, Arm Pain, Back Pain, Hand Pain, Leg Pain, Foot Pain, Other Skin: negative: Rash, Lesions, Josue, Bruising, Other Neurological: negative: Weakness, Numbness, Incoordination, Change in Speech, Confusion, Seizures, Other - Medications/Allergies Allergies/Adverse Reactions: Allergies Allergy/AdvReac Type Severity Reaction Status Date / Time ciprofloxacin [From Cipro] Allergy Verified 08/25/14 09:37 propoxyphene napsylate Allergy Verified 08/25/14 09:37 [From Darvocet-N 100] Medications: Current Medications Acetaminophen (Tylenol) 650 mg PO Q4H PRN PRN Reason: Headache/Fever or Pain Last Admin: 05/10/18 05:36 Dose: 650 mg Al Hydroxide/Mg Hydroxide (Maalox) 30 ml PO Q6H PRN PRN Reason: Heartburn or Indigestion Albuterol/Ipratropium (Duoneb) 3 ml NEB [id number] PRN PRN Reason: SOB &/or Wheezing Last Admin: 05/11/18 13:52 Dose: 3 ml Benzonatate (Tessalon) 100 mg PO Q4H PRN PRN Reason: Cough Bisacodyl (Dulcolax) 10 mg PO DAILYPRN PRN PRN Reason: Constipation Calcium Carbonate (Tums) 1,000 mg PO Q4H PRN PRN Reason: Heartburn or Indigestion Clonidine (Catapres) 0.1 mg PO Q4H PRN PRN Reason: Systolic BP > 160 Dextrose/Water (Dextrose 50%) 25 gm SLOW IVP PRN PRN PRN Reason: Hypoglycemia Famotidine (Pepcid) 20 mg PO 2100 RODOLFO Last Admin: 05/10/18 20:34 Dose: 20 mg Glucagon (Glucagon) 1 mg IM PRN PRN PRN Reason: Hypoglycemia Guaifenesin (Robitussin Sf) 200 mg PO Q4H PRN PRN Reason: Cough Heparin Sodium (Porcine) (Heparin) 5,000 units SC TID [facility] Last Admin: 05/11/18 15:07 Dose: 5,000 units Hydralazine HCl (Apresoline) 10 mg SLOW IVP Q4H PRN PRN Reason: Systolic BP > 170 Hydrocortisone Sodium Succinate (Solu-Cortef) 50 mg IVP Q6HR [facility] Last Admin: 05/11/18 11:52 Dose: 50 mg Norepinephrine Bitartrate (Levophed) 250 mls @ 0 mls/hr IVPB PRN PRN; Protocol PRN Reason: To maintain MAP > 65 Last Admin: 05/10/18 12:53 Dose: 250 mls Dextrose/Water (D5w) 1,000 mls @ 0 mls/hr IV .Q0M PRN PRN Reason: Hypoglycemia Potassium Chloride 40 meq/ (Sodium Chloride) 270 mls @ 135 mls/hr IVPB ASDIR PRN PRN Reason: FOR SERUM K+ 2.5 - 3.5 Potassium Chloride 40 meq/ (Device) 100 mls @ 50 mls/hr IVPB ASDIR PRN PRN Reason: FOR SERUM K+ 2.5 - 3.5 Magnesium Sulfate 1 gm/ Sodium (Chloride) 102 mls @ 102 mls/hr IV PRN PRN PRN Reason: MAG LEVEL 1.4 - 2.0 Sodium Chloride (Normal Saline 0.9%) 1,000 mls @ 100 mls/hr IV .Q10H [facility] Last Admin: 05/10/18 20:34 Dose: 1,000 mls Piperacillin Sod/Tazobactam (Sod 3.375 gm/ Sodium Chloride) 100 mls @ 200 mls/ hr IVPB Q6HR [facility] Last Admin: 05/11/18 13:28 Dose: 100 mls Insulin Human Lispro (Humalog) 0 units SC .MODERATE SLIDING SC PRN; Protocol PRN Reason: MODERATE SLIDING SCALE Last Admin: 05/11/18 12:05 Dose: 2 unit Levothyroxine Sodium (Synthroid) 75 mcg PO 0600 [facility] Last Admin: 05/11/18 06:12 Dose: 75 mcg Magnesium Oxide (Magnesium Oxide) 400 mg PO BIDPRN PRN PRN Reason: FOR SERUM MAG 1.4 - 2.0 Magnesium Oxide (Magnesium Oxide) 800 mg PO PRN PRN PRN Reason: FOR SERUM MAG < 1.4 Miscellaneous Medication (Phos-Nak) 1 pkt PO TIDPRN PRN PRN Reason: FOR PHOS LEVEL 1.0 - 1.8 Miscellaneous Medication (Phos-Nak) 2 pkt PO TIDPRN PRN PRN Reason: FOR PHOS LEVEL 0.5 - 1.0 Nitroglycerin (Nitrostat) 0.4 mg SL Q5MIN PRN PRN Reason: Chest Pain Ondansetron HCl (Zofran) 4 mg IVP Q6H PRN PRN Reason: Nausea/Vomiting Last Admin: 05/10/18 09:08 Dose: 4 mg Potassium Chloride (K-Dur) 40 meq PO ASDIR PRN PRN Reason: FOR SERUM K+ 2.5 - 3.5 Potassium Chloride (Klor-Con) 40 meq PER TUBE ASDIR PRN PRN Reason: FOR SERUM K+ 2.5-3.5 Senna (Senokot) 2 tab PO HSPRN PRN PRN Reason: Constipation Sodium Chloride (Flush - Normal Saline) 10 ml IVF Q12HR RODOLFO Last Admin: 05/11/18 08:49 Dose: 10 ml Sodium Chloride (Flush - Normal Saline) 10 ml IVF PRN PRN PRN Reason: Saline Flush Tramadol HCl (Ultram) 50 mg PO Q4H PRN PRN Reason: Moderate Pain (4-6) Last Admin: 05/10/18 18:33 Dose: 50 mg
[2018-05-11] MEDS: Sodium Chloride 0.9% 1,000 ML IV SCH (17:16)
--- NOTE | 2018-05-11 19:01 | CON ---
DATE OF CONSULTATION: 05/11/2018 CONSULTING PHYSICIAN: Dr. Mclain. REASON FOR CONSULTATION: Acute kidney injury. REASON FOR ADMISSION: UTI and lethargic. HISTORY OF PRESENT ILLNESS: This is a 72-year-old female with history of [place]'s disease, hypothyr oidism, came to the hospital with above complaints and was found to have elevated creatinine and Neph rology is consulted. The patient is feeling slightly better. No chest pain, no shortness of breath, no fever or chills. PAST MEDICAL HISTORY: Positive for [place]'s disease, hypothyroidism, asthma. PAST SURGICAL HISTORY: , cholecystectomy, hysterectomy, tonsillectomy, ablation. HOME MEDICATIONS: Levothyroxine, prednisone. ALLERGIES: PROPOXYPHENE, CIPROFLOXACIN. FAMILY HISTORY: Positive for heart disease. SOCIAL HISTORY: No alcohol or illicit drug abuse. No tobacco use. REVIEW OF SYSTEMS: The following complete review of systems was negative, unless otherwise mentioned in the HPI or below: Constitutional: Weight loss or gain, ability to conduct usual activities. Sk in: Rash, itching. Eyes: Double vision, pain. ENT/Mouth: Nose bleeding, neck stiffness, pain, te nderness. Cardiovascular: Palpitations, dyspnea on exertion, orthopnea. Respiratory: Shortness of breath, wheezing, cough, hemoptysis, fever or night sweats. Gastrointestinal: Poor appetite, abdom inal pain, heartburn, nausea, vomiting, constipation, or diarrhea. Genitourinary: Urgency, frequenc y, dysuria, nocturia. Musculoskeletal: Pain, swelling. Neurologic/Psychiatric: Anxiety, depressio n. Allergy/Immunologic: Skin rash, bleeding tendency. PHYSICAL EXAMINATION: GENERAL: This is an elderly female in no apparent distress. VITAL SIGNS: Temperature 97.9, pulse 73, respiratory rate 18, blood pressure 100/57. HEENT: Atraumatic, normocephalic. Oral mucosa is moist. NECK: Supple, no masses. CARDIOVASCULAR: S1, S2 heard. Rate and rhythm regular. RESPIRATORY: Clear. GASTROINTESTINAL: Abdomen is soft. MUSCULOSKELETAL: 1+ edema. DERMATOLOGIC: No skin rash. NEUROLOGIC: Alert, awake. PSYCHIATRIC: Mood and affect normal. LABORATORY DATA: Hemoglobin is 9.4, WBC . Potassium is 4.3, BUN 26, creatinine 1.7 from 3.5. ASSESSMENT AND PLAN: 1. Acute kidney injury on chronic kidney disease stage 3. Renal function with good improvement. Av oid nephrotoxins. Agree with current management and continue supportive care. Continue antibiotics. 2. Hyponatremia, better. 3. Metabolic acidosis, most likely from infection. 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 5. Lactic acidosis, better. 6. Anemia, rule out bleed. 7. Hypotension, most likely . Continue steroids and home doses as tolerated. Thank you for the consult. We will follow. Avoid nephrotoxins.
[2018-05-11] MEDS: Famotidine 20 MG TAB PO SCH (21:15)
[2018-05-11] MEDS: diphenhydrAMINE 25 MG CAP PO PRN (21:16)
[2018-05-12] MEDS: Sodium Chloride 0.9% 1,000 ML IV SCH ×2 (03:14→03:50)
[2018-05-12] MEDS: Levothyroxine Sodium 75 MCG TAB PO SCH (05:38)
[2018-05-12] MEDS: Piperacillin/Tazobactam 3.375 GM in Sodium Chloride 0.9% 100 ML IVPB SCH (05:38)
[2018-05-12] MEDS: Hydrocortisone Sod Succ/PF 100 mg/2 ml Vial IVP SCH ×4 (05:38→23:03)
[2018-05-12] MEDS: Acetaminophen 325 MG TAB PO PRN ×2 (05:40→20:26)
[2018-05-12] MEDS: cefTRIAXone\\ROCEPHIN 2 GM in Sodium Chloride 0.9% 100 ML IVPB SCH (09:00)
[2018-05-12] MEDS: Heparin 5,000 UNITS/ML VIAL SC SCH ×3 (09:00→20:27)
[2018-05-12 09:52] LABS: Hemoglobin 8.1 g/dL (12.0-16.0); Mean Corpuscular HGB CONC 33.9 g/dL (32.0-36.0); Mean Corpuscular Hemoglobin 32.8 pg (27.0-31.0); Mean Corpuscular Volume 96.9 fL (78.0-98.0); RBC Distribution Width 12.5 % (11.5-14.5); Red Blood Cell (RBC) Count 2.47 mill/uL (4.20-5.40); White Blood Cell (WBC) Count 13.2 thou/uL (4.8-10.8)
[2018-05-12 10:08] LABS: ALT (SGPT) 73 U/L (8-55); AST (SGOT) 52 U/L (5-34); Alkaline Phosphatase 88 U/L (40-150); Anion Gap 15 mmol/L (10-20); BUN (Urea Nitrogen) 23 mg/dL (9.8-20.1); Bilirubin, Total 0.4 mg/dL (0.2-1.2); Calc. Creatinine Clearance 41 mL/min (70-130); Calcium 7.3 mg/dL (7.8-10.44); Carbon Dioxide 16 mmol/L (23-31); Chloride 112 mmol/L (98-107); Estimated GFR-MDRD 36; Globulin 2.1 g/dL (2.4-3.5); Glucose 112 mg/dL (83-110); Potassium 3.3 mmol/L (3.5-5.1); Protein, Total 5.1 g/dL (6.0-8.3); Sodium 140 mmol/L (136-145)
[2018-05-12 10:31] LABS: Acanthocytes SLIGHT = 1-5 cells (100X) (None Seen); Band 3 % (5-11); Burr Cells MARKED = >16 cells (100X) (0-1/hpf); Lymphocytes 1 % (21-51); MDiff Complete? YES; Macrocytosis SLIGHT = 6-15 cells (100X) (0-5/hpf); Mean Platelet Volume 6.9 fL (7.4-10.4); Microcytosis SLIGHT = 6-15 cells (100X) (0-5/hpf); Monocytes 6 % (0-10); Neutrophil 90 % (42-75); PLT Morphology Comment Appears Adequate; Platelet Count 167 thou/uL (130-400); Polychromasia SLIGHT = 2-3 cells (100X) (0-2/hpf)
--- NOTE | 2018-05-12 16:34 | PRG ---
DATE OF SERVICE: 05/12/2018 SUBJECTIVE: The patient was seen and examined at bedside and overnight events noted. The patient de nies any shortness of breath or chest pain or palpitation. No history of nausea or vomiting or diarr hea or fever or chills or cramps. OBJECTIVE: GENERAL: This is an elderly white female, in no apparent distress. VITAL SIGNS: Temperature , blood pressure 109/59. HEENT: Atraumatic, normocephalic. Oral mucosa is moist. NECK: Supple. CARDIOVASCULAR: S1, S2 heard. Rate and rhythm regular. RESPIRATORY: Clear to auscultation. GASTROINTESTINAL: Abdomen is soft. MUSCULOSKELETAL: No tenderness. No edema. DERMATOLOGIC: No skin rash. NEUROLOGIC: Alert and awake and oriented x3. No focal neurologic deficits. Moving all the extremit ies. PSYCHIATRIC: Mood and affect normal. LABORATORY DATA: Potassium is 3.3, bicarbonate is 16, BUN is , creatinine is 1.4. ASSESSMENT AND PLAN: 1. Acute kidney injury on chronic kidney disease, creatinine getting better, down to 1.4 from 3.9 on admission. We will follow. Avoid nephrotoxins. 2. Hyponatremia, stable. 3. Hypokalemia, replace cautiously. 4. Metabolic acidosis. 5. History of Lawrence's disease. Continue supplements. 6. Hypotension, chronic. 7. Anemia of chronic disease. 8. Currently on hydrocortisone. Renal function is stable. Avoid nephrotoxins. We will follow.
[2018-05-12] MEDS: Mometasone/Formoterol 120 PUFF INHALER INH SCH (18:18)
--- NOTE | 2018-05-12 18:20 | CT ---
CT ABDOMEN AND PELVIS WITHOUT CONTRAST: History: Pyelonephritis and bacteremia. Renal failure. The patient status post cholecystectomy, appen dectomy, hysterectomy, and hernia repair. FINDINGS: Absence of oral and IV contrast reduces the sensitivity of exam particularly for solid organs and bow el. There are small bilateral pleural effusions. No free air or free fluid is seen in the abdomen or pelv is. The patient is status post cholecystectomy, appendectomy, and hernia repair. Vascular calcificati ons without evidence of aneurysmal dilatation of the abdominal aorta. There are degenerative changes in the spine. No calculi are seen in the kidneys, ureters, or urinary bladder. No hydroureteronephrosis is seen on either side. There are limited changes in the subcutaneous fat of the left lower left abdominal wall. A small amou nt of air is seen in the subcutaneous fat in the left lower abdominal wall likely due to recent injec tion. IMPRESSION: 1. No CT evidence of renal calculi/ obstruction. 2. Small bilateral pleural effusions. POS: [facility]
--- NOTE | 2018-05-12 19:40 | CON ---
DATE OF CONSULTATION: 05/12/2018 REASON FOR CONSULTATION: Bacteremia. HISTORY OF PRESENT ILLNESS: This is a 72-year-old with history of [place]'s disease diagnosed a few years ago, on supplemental prednisone, hypothyroidism, prior episode of urinary tract infection who w as in her usual state until a few weeks ago when she was diagnosed with UTI and given antimicrobial t herapy, which she finished 2 weeks before. For the past week before admission, she developed suprapu bic pain recurrence, subjective fevers, anorexia and weakness. On the day of admission, she was foun d lethargic by son and brought to the emergency room and admitted. She had a few episodes of vomitin g the days before admission. On arrival, she was tachycardic with BP in the 50s systolic. She was g iven IV fluids and vasopressors and broad spectrum antimicrobial coverage. Initial white cell count 19,000 with 16% bands and lactic acidosis. Creatinine was 3.99. CK of 632. Urinalysis was abnormal . Chest x-ray was not remarkable. The patient has improved significantly. She is sitting by the be dside. She just finished walking. She is still having problems breathing with some wheezing. Denie s headaches. No visual symptoms. No chest pain, some cough, no abdominal pain. Still with some sup rapubic tenderness. Gutierrez catheter was just removed and she has not yet voided. PAST MEDICAL HISTORY: [place]'s disease, hypothyroidism, asthma, prior UTI. PAST SURGICAL HISTORY: , cholecystectomy, hysterectomy, tonsillectomy, PVC ablation. ALLERGIES: PROPOXYPHENE and CIPRO. CURRENT MEDICATIONS: Include Maalox, DuoNeb, Tessalon, Dulcolax, Tums, ceftriaxone, Catapres, Benadr yl, glucagon, Robitussin, Apresoline, Solu-Cortef, insulin, Synthroid, inhaler, Zofran, Senokot, tram adol. 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 FAMILY HISTORY: Coronary artery disease. PHYSICAL EXAMINATION: VITAL SIGNS: T-max 98, blood pressure 109/59, pulse 88, respirations 18, O2 saturation 98%. SKIN: Shows peripheral IV access. Does not have a Gutierrez catheter. She has a right IJ triple lumen catheter in place. No lymphadenopathy. HEENT: Ocular movements conjugate. Oral cavity was not remarkable. NECK: Supple. No jugular vein distention. LUNGS: With scattered expiratory wheezing spread throughout both right and left hemithoraces. HEART: S1, S2, regular rate. ABDOMEN: Soft, not distended or tender. No ascites. No bladder distention. EXTREMITIES: No joint inflammatory activity. No edema. Pulses 1+ in dorsalis pedis. She moves all extremities equally. LABORATORY DATA: White cell count down from 19 to 13, hemoglobin down from 13 to 8, MCV 96, platelet s are at 167,000, neutrophils up to 90% and bands are down from 16 to 3. Chemistry with a creatinine down to 1.42, sodium 140, potassium 3.3, transaminases at 52 and 73, albumin 3.0. Urinalysis greate r than 50 WBCs, 300 protein. The chest x-ray from admission with patchy right basilar infiltrate. ASSESSMENT AND PLAN: History of prior urinary tract infection, [place]'s disease and hypothyroidism, admitted with urosepsis secondary to Escherichia coli, which has a very broad susceptibility profile except for ampicillin and Bactrim and piperacillin tazobactam. The patient is currently receiving R ocephin and she still has quite a bit of bronchoconstriction. According to her, she has not had any asthma issues for many years now and did not have an inhaler at home. This may be related to maybe s ome element of volume overload associated with underlying illness. We will check her abdomen and pel vis CT stone protocol to rule out obstruction, nephrolithiasis or a bedside kidney and bladder ultras ound. Continue with Rocephin and eventual placement of PICC line and removal of the central line and treat with Rocephin for at least another 2 weeks. This will depend on the findings in the imaging s tudy. May need urological consultation depending on the findings in the imaging study. I would not advise oral cephalosporins since those are associated with worse outcomes in patients with pyelonephr itis and more severe urinary tract infections. She cannot take quinolones due to the reported allerg y to quinolones in the past.
--- NOTE | 2018-05-12 20:07 | PDOC.PN ---
- Subjective Encounter Start Date: 05/12/18 Encounter Start Time: 15:20 Patient seen and examined this morning. Patient is wheezing therefore spoke to nurse to give duoneb treatment and order symbicort for the patient. Will continue to monitor patient closely. NAD. Patient is progressing well and in good spirits. - Objective Resuscitation Status: Resuscitation Status FULL:Full Resuscitation MAR Reviewed: Yes Vital Signs & Weight: Vital Signs (12 hours) Temp Pulse Resp BP BP Pulse Ox 05/12/18 19:19 98.0 F 80 16 118/58 L 95 05/12/18 18:18 87 18 05/12/18 15:33 97.6 F 88 16 125/59 L 96 05/12/18 14:06 82 20 05/12/18 11:59 98 F 88 18 109/59 L 98 05/12/18 11:14 79 20 Weight Weight 166 lb 3.2 oz Most Recent Monitor Data Heart Rate from ECG 88 NIBP 100/57 NIBP BP-Mean 83 Respiration from ECG 19 SpO2 97 I&O: 05/11/18 05/12/18 05/13/18 06:59 06:59 06:59 Intake Total 3867.1 3782 1120 Output Total 1550 2482 1300 Balance 2317.1 1300 -180 Result Diagrams: 05/19/18 04:54 05/19/18 04:54 Additional Labs: Accuchecks 05/12/18 05/12/18 05/12/18 17:08 11:12 06:09 POC Glucose 111 H 104 125 H 05/11/18 20:51 POC Glucose 157 H Phys Exam - Physical Examination Constitutional: NAD HEENT: PERRLA, moist MMs Neck: no JVD, supple Respiratory: no wheezing, no rales Cardiovascular: no significant murmur Gastrointestinal: non-tender, no distention Musculoskeletal: edema present Neurological: non-focal, normal sensation, moves all 4 limbs Psychiatric: normal affect Dx/Plan (1) Bacteremia Code(s): R78.81 - BACTEREMIA Status: Resolved Comment: tolerated levofloxacin. will continue (2) Septic shock Code(s): A41.9 - SEPSIS, UNSPECIFIED ORGANISM; R65.21 - SEVERE SEPSIS WITH SEPTIC SHOCK Status: Resolved Comment: resolved (3) UTI (urinary tract infection) Status: Resolved Comment: continue antibiotics po (4) [place] disease Code(s): E27.1 - PRIMARY ADRENOCORTICAL INSUFFICIENCY Status: Chronic Comment: on IV steriods. will convert to po steriods in the AM. (5) Asthma Code(s): J45.909 - UNSPECIFIED ASTHMA, UNCOMPLICATED Status: Chronic Comment : wheezing. will continue dunonebs and symbicort (6) Hypothyroidism Code(s): E03.9 - HYPOTHYROIDISM, UNSPECIFIED Status: Chronic Comment: stable (7) Addisonian crisis Status: Acute Comment: Taper patient on steriods. She takes 5mg at home but taper her of IV steriods when she is ready to go home. (8) SHAHID (acute kidney injury) Code(s): N17.9 - ACUTE KIDNEY FAILURE, UNSPECIFIED Status: Resolved Comment : improving. will continue to follow nephros recs. - Plan * . Review of Systems - Review of Systems Constitutional: negative: fever, chills, sweats, weakness, malaise, other Eyes: negative: Pain, Vision Change, Conjunctivae Inflammation, Eyelid Inflammation, Redness, Other Respiratory: Wheezing. negative: Cough, Dry, Shortness of Breath, Hemoptysis, SOB with Excertion, Pleuritic Pain, Sputum Cardiovascular: negative: chest pain, palpitations, orthopnea, paroxysmal nocturnal dyspnea, edema, light headedness, other Gastrointestinal: negative: Nausea, Vomiting, Abdominal Pain, Diarrhea, Constipation, Melena, Hematochezia, Other Genitourinary: negative: Dysuria, Frequency, Incontinence, Hematuria, Retention , Other Musculoskeletal: negative: Neck Pain, Shoulder Pain, Arm Pain, Back Pain, Hand Pain, Leg Pain, Foot Pain, Other Skin: negative: Rash, Lesions, Josue, Bruising, Other Neurological: negative: Weakness, Numbness, Incoordination, Change in Speech, Confusion, Seizures, Other - Medications/Allergies Allergies/Adverse Reactions: Allergies Allergy/AdvReac Type Severity Reaction Status Date / Time ciprofloxacin [From Cipro] Allergy Verified 08/25/14 09:37 propoxyphene napsylate Allergy Verified 08/25/14 09:37 [From Darvocet-N 100] Medications: Current Medications Acetaminophen (Tylenol) 650 mg PO Q4H PRN PRN Reason: Headache/Fever or Pain Last Admin: 05/12/18 05:40 Dose: 650 mg Al Hydroxide/Mg Hydroxide (Maalox) 30 ml PO Q6H PRN PRN Reason: Heartburn or Indigestion Albuterol/Ipratropium (Duoneb) 3 ml NEB [id number] PRN PRN Reason: SOB &/or Wheezing Last Admin: 05/12/18 14:06 Dose: 3 ml Benzonatate (Tessalon) 100 mg PO Q4H PRN PRN Reason: Cough Bisacodyl (Dulcolax) 10 mg PO DAILYPRN PRN PRN Reason: Constipation Calcium Carbonate (Tums) 1,000 mg PO Q4H PRN PRN Reason: Heartburn or Indigestion Clonidine (Catapres) 0.1 mg PO Q4H PRN PRN Reason: Systolic BP > 160 Dextrose/Water (Dextrose 50%) 25 gm SLOW IVP PRN PRN PRN Reason: Hypoglycemia Diphenhydramine HCl (Benadryl) 25 mg PO HSPRN PRN PRN Reason: Itching & Insomnia Last Admin: 05/11/18 21:16 Dose: 25 mg Famotidine (Pepcid) 20 mg PO 2100 [facility] Last Admin: 05/11/18 21:15 Dose: 20 mg Glucagon (Glucagon) 1 mg IM PRN PRN PRN Reason: Hypoglycemia Guaifenesin (Robitussin Sf) 200 mg PO Q4H PRN PRN Reason: Cough Heparin Sodium (Porcine) (Heparin) 5,000 units SC TID [facility] Last Admin: 05/12/18 15:19 Dose: 5,000 units Hydralazine HCl (Apresoline) 10 mg SLOW IVP Q4H PRN PRN Reason: Systolic BP > 170 Hydrocortisone Sodium Succinate (Solu-Cortef) 50 mg IVP Q6HR [facility] Last Admin: 05/12/18 17:23 Dose: 50 mg Dextrose/Water (D5w) 1,000 mls @ 0 mls/hr IV .Q0M PRN PRN Reason: Hypoglycemia Ceftriaxone Sodium 2 gm/ (Sodium Chloride) 100 mls @ 200 mls/hr IVPB Q24HR [facility] Last Admin: 05/12/18 09:00 Dose: 100 mls Insulin Human Lispro (Humalog) 0 units SC .MODERATE SLIDING SC PRN; Protocol PRN Reason: MODERATE SLIDING SCALE Last Admin: 08/11/18 12:05 Dose: 2 unit Levothyroxine Sodium (Synthroid) 75 mcg PO 0600 [facility] Last Admin: 05/12/18 05:38 Dose: 75 mcg Mometasone Furoate/Formoterol Fumar (Dulera 100 Mcg/5 Mcg Inhaler) 1 puff INH BID-RT [facility] Last Admin: 05/12/18 18:18 Dose: 1 puff Nitroglycerin (Nitrostat) 0.4 mg SL Q5MIN PRN PRN Reason: Chest Pain Ondansetron HCl (Zofran) 4 mg IVP Q6H PRN PRN Reason: Nausea/Vomiting Last Admin: 05/10/18 09:08 Dose: 4 mg Senna (Senokot) 2 tab PO HSPRN PRN PRN Reason: Constipation Sodium Chloride (Flush - Normal Saline) 10 ml IVF Q12HR [facility] Last Admin: 05/12/18 09:00 Dose: 10 ml Sodium Chloride (Flush - Normal Saline) 10 ml IVF PRN PRN PRN Reason: Saline Flush Tramadol HCl (Ultram) 50 mg PO Q4H PRN PRN Reason: Moderate Pain (4-6) Last Admin: 05/10/18 18:33 Dose: 50 mg
[2018-05-12] MEDS: Famotidine 20 MG TAB PO SCH (20:27)
[2018-05-12] MEDS ORDERED: Furosemide 20 MG/2 ML VIAL SLOW IVP SCH (22:00)
[2018-05-13 04:08] VITALS: BMI 28.5
[2018-05-13] MEDS: Levothyroxine Sodium 75 MCG TAB PO SCH (05:24)
[2018-05-13] MEDS: Hydrocortisone Sod Succ/PF 100 mg/2 ml Vial IVP SCH ×4 (05:24→23:46)
[2018-05-13 05:44] LABS: ALT (SGPT) 77 U/L (8-55); AST (SGOT) 51 U/L (5-34); Albumin 3.3 g/dL (3.4-4.8); Alkaline Phosphatase 91 U/L (40-150); Anion Gap 15 mmol/L (10-20); BUN (Urea Nitrogen) 25 mg/dL (9.8-20.1); Bilirubin, Total 0.6 mg/dL (0.2-1.2); Calc. Creatinine Clearance 45 mL/min (70-130); Calcium 8.3 mg/dL (7.8-10.44); Carbon Dioxide 19 mmol/L (23-31); Chloride 109 mmol/L (98-107); Estimated GFR-MDRD 40; Globulin 2.1 g/dL (2.4-3.5); Glucose 106 mg/dL (83-110); Protein, Total 5.4 g/dL (6.0-8.3); Sodium 140 mmol/L (136-145)
[2018-05-13 05:50] LABS: Potassium 2.8 mmol/L (3.5-5.1)
[2018-05-13 06:12] LABS: Band 14 % (5-11); Hemoglobin 8.6 g/dL (12.0-16.0); Lymphocytes 5 % (21-51); MDiff Complete? YES; Mean Corpuscular Hemoglobin 33.8 pg (27.0-31.0); Mean Corpuscular Volume 96.7 fL (78.0-98.0); Metamyelocyte 1 % (0-0); Monocytes 10 % (0-10); Neutrophil 70 % (42-75); PLT Morphology Comment Appears Adequate; Platelet Count 199 thou/uL (130-400); RBC Distribution Width 12.5 % (11.5-14.5); Red Blood Cell (RBC) Count 2.53 mill/uL (4.20-5.40); White Blood Cell (WBC) Count 9.9 thou/uL (4.8-10.8)
[2018-05-13] MEDS: Mometasone/Formoterol 120 PUFF INHALER INH SCH ×2 (07:48→19:04)
[2018-05-13] MEDS ORDERED: Potassium Chloride 20 MEQ in Premix Bag 1 BAG IVPB SCH (08:00)
[2018-05-13] MEDS: cefTRIAXone\\ROCEPHIN 2 GM in Sodium Chloride 0.9% 100 ML IVPB SCH (09:15)
[2018-05-13] MEDS: Heparin 5,000 UNITS/ML VIAL SC SCH ×3 (09:15→21:06)
[2018-05-13] MEDS: traMADol HCl 50 MG TAB PO PRN (10:10)
[2018-05-13] MEDS: Magnesium Sulfate 2 GM in Sodium Chloride 0.9% 100 ML IVPB SCH ×2 (11:35→16:05)
[2018-05-13] MEDS: Potassium Chloride 20 MEQ TAB PO SCH ×2 (11:35→16:05)
--- NOTE | 2018-05-13 14:03 | PRG ---
DATE OF SERVICE: 05/13/2018 SUBJECTIVE: This is a 72-year-old female, being seen for acute kidney injury. The patient denies any nausea, vomiting, or chest pain. OBJECTIVE: See above. GENERAL: Patient is awake, alert. VITAL SIGNS: Afebrile, pulse 72, breathing at 16, blood pressure 130-70. GENERAL APPEARANCE AND MENTAL STATUS: Fair. HEAD/NECK: Normocephalic. Atraumatic. EYES: EOMI. No deformity. EARS: Clear. No ulcers. NOSE: Intact. No lesions. MOUTH: Clear. No discharge. THROAT: Clear. No exudate. LUNGS: Clear. No crackles. CARDIAC: S1, S2. No rub. ABDOMEN: Benign. BS+. GENITALIA/RECTUM: Gutierrez absent. BACK/EXTREMITIES: Edema 0+, ulcer. NEUROLOGICAL: Alert and motor intact. SKIN: Rash - bruise. LYMPHATICS: Edema - ulcer. LABORATORY DATA: Hemoglobin 8.6. Potassium is 2.8. ASSESSMENT AND RECOMMENDATIONS: 1. Acute kidney injury, improved. 2. Hypertension, stable. 3. Anemia, stable. 4. Metabolic acidosis, stable. 5. Hypokalemia. Recommend 80 mEq of potassium. This will be given by mouth and recheck potassium in 2 hours. I will sign off please reconsult as needed MTDD
--- NOTE | 2018-05-13 15:16 | PDOC.PN ---
- Subjective Encounter Start Date: 05/13/18 Encounter Start Time: 15:14 Patient seen and examined. NAD. - Objective Resuscitation Status: Resuscitation Status FULL:Full Resuscitation MAR Reviewed: Yes Vital Signs & Weight: Vital Signs (12 hours) Temp Pulse Resp BP Pulse Ox 05/13/18 11:35 78 20 121/60 05/13/18 10:55 92 16 05/13/18 08:07 97.3 F L 73 18 126/59 L 05/13/18 07:51 94 L 05/13/18 07:48 83 12 05/13/18 04:00 95 05/13/18 03:33 92 20 93 L Weight Weight 165 lb 14.4 oz Most Recent Monitor Data Heart Rate from ECG 88 NIBP 100/57 NIBP BP-Mean 83 Respiration from ECG 19 SpO2 97 I&O: 05/12/18 05/13/18 05/14/18 06:59 06:59 06:59 Intake Total 3782 1480 Output Total 2482 3100 Balance 1300 -1620 Result Diagrams: 05/13/18 04:44 05/13/18 04:44 Additional Labs: Accuchecks 05/13/18 05/13/18 05/12/18 11:05 05:41 20:59 POC Glucose 108 109 128 H 05/12/18 05/10/18 17:08 16:15 POC Glucose 111 H 286 H Phys Exam - Physical Examination Constitutional: NAD HEENT: PERRLA, moist MMs Neck: no JVD Respiratory: no wheezing, no rales, no rhonchi Cardiovascular: RRR, no significant murmur Gastrointestinal: soft, non-tender, no distention Musculoskeletal: no edema, pulses present Neurological: non-focal, normal sensation Dx/Plan (1) Bacteremia Code(s): R78.81 - BACTEREMIA Status: Acute Comment: continue rocephin (2) Septic shock Code(s): A41.9 - SEPSIS, UNSPECIFIED ORGANISM; R65.21 - SEVERE SEPSIS WITH SEPTIC SHOCK Status: Acute Comment: resolved (3) UTI (urinary tract infection) Status: Acute Comment: ID on the case. Per ID CT abd/pelvis was to be ordered for stone protocol. Results of the test has been negative. Will consider picc line if patient is going to be on terminal operations supervisor antibiotics and discharge the patient to Subacute rehab facility. Will continue IV antibiotics at this time. (4) [place] disease Code(s): E27.1 - PRIMARY ADRENOCORTICAL INSUFFICIENCY Status: Chronic Comment: on IV steriods. will convert to po steriods in the AM. (5) Asthma Code(s): J45.909 - UNSPECIFIED ASTHMA, UNCOMPLICATED Status: Chronic Comment : wheezing. will continue dunonebs and symbicort (6) Hypothyroidism Code(s): E03.9 - HYPOTHYROIDISM, UNSPECIFIED Status: Chronic Comment: stable (7) Addisonian crisis Status: Acute Comment: continue steriods (8) SHAHID (acute kidney injury) Code(s): N17.9 - ACUTE KIDNEY FAILURE, UNSPECIFIED Status: Acute Comment: improving. will continue to follow nephros recs. (9) Electrolyte abnormality Code(s): E87.8 - OTH DISORDERS OF ELECTROLYTE AND FLUID BALANCE, NEC Status: Acute Comment: repleted - Plan * . Review of Systems - Review of Systems Constitutional: negative: fever, chills, sweats, weakness, malaise, other Eyes: negative: Pain, Vision Change, Conjunctivae Inflammation, Eyelid Inflammation, Redness, Other ENT: negative: Ear Pain, Ear Discharge, Nose Pain, Nose Discharge, Nose Congestion, Mouth Pain, Mouth Swelling, Throat Pain, Throat Swelling, Other Respiratory: negative: Cough, Dry, Shortness of Breath, Hemoptysis, SOB with Excertion, Pleuritic Pain, Sputum, Wheezing Cardiovascular: negative: chest pain, palpitations, orthopnea, paroxysmal nocturnal dyspnea, edema, light headedness, other Gastrointestinal: negative: Nausea, Vomiting, Abdominal Pain, Diarrhea, Constipation, Melena, Hematochezia, Other Genitourinary: negative: Dysuria, Frequency, Incontinence, Hematuria, Retention , Other Musculoskeletal: negative: Neck Pain, Shoulder Pain, Arm Pain, Back Pain, Hand Pain, Leg Pain, Foot Pain, Other Skin: negative: Rash, Lesions, Josue, Bruising, Other Neurological: negative: Weakness, Numbness, Incoordination, Change in Speech, Confusion, Seizures, Other - Medications/Allergies Allergies/Adverse Reactions: Allergies Allergy/AdvReac Type Severity Reaction Status Date / Time ciprofloxacin [From Cipro] Allergy Verified 08/25/14 09:37 propoxyphene napsylate Allergy Verified 08/25/14 09:37 [From Darvocet-N 100] Medications: Current Medications Acetaminophen (Tylenol) 650 mg PO Q4H PRN PRN Reason: Headache/Fever or Pain Last Admin: 05/12/18 20:26 Dose: 650 mg Al Hydroxide/Mg Hydroxide (Maalox) 30 ml PO Q6H PRN PRN Reason: Heartburn or Indigestion Albuterol/Ipratropium (Duoneb) 3 ml NEB [id number] PRN PRN Reason: SOB &/or Wheezing Last Admin: 05/13/18 10:55 Dose: 3 ml Benzonatate (Tessalon) 100 mg PO Q4H PRN PRN Reason: Cough Bisacodyl (Dulcolax) 10 mg PO DAILYPRN PRN PRN Reason: Constipation Calcium Carbonate (Tums) 1,000 mg PO Q4H PRN PRN Reason: Heartburn or Indigestion Clonidine (Catapres) 0.1 mg PO Q4H PRN PRN Reason: Systolic BP > 160 Dextrose/Water (Dextrose 50%) 25 gm SLOW IVP PRN PRN PRN Reason: Hypoglycemia Diphenhydramine HCl (Benadryl) 25 mg PO HSPRN PRN PRN Reason: Itching & Insomnia Last Admin: 05/11/18 21:16 Dose: 25 mg Famotidine (Pepcid) 20 mg PO 2100 [facility] Last Admin: 05/12/18 20:27 Dose: 20 mg Glucagon (Glucagon) 1 mg IM PRN PRN PRN Reason: Hypoglycemia Guaifenesin (Robitussin Sf) 200 mg PO Q4H PRN PRN Reason: Cough Heparin Sodium (Porcine) (Heparin) 5,000 units SC TID [facility] Last Admin: 05/13/18 09:15 Dose: 5,000 units Hydralazine HCl (Apresoline) 10 mg SLOW IVP Q4H PRN PRN Reason: Systolic BP > 170 Hydrocortisone Sodium Succinate (Solu-Cortef) 50 mg IVP Q6HR [facility] Last Admin: 05/13/18 13:25 Dose: 50 mg Dextrose/Water (D5w) 1,000 mls @ 0 mls/hr IV .Q0M PRN PRN Reason: Hypoglycemia Ceftriaxone Sodium 2 gm/ (Sodium Chloride) 100 mls @ 200 mls/hr IVPB Q24HR [facility] Last Admin: 05/13/18 09:15 Dose: 100 mls Insulin Human Lispro (Humalog) 0 units SC .MODERATE SLIDING SC PRN; Protocol PRN Reason: MODERATE SLIDING SCALE Last Admin: 05/11/18 12:05 Dose: 2 unit Levothyroxine Sodium (Synthroid) 75 mcg PO 0600 [facility] Last Admin: 05/13/18 05:24 Dose: 75 mcg Mometasone Furoate/Formoterol Fumar (Dulera 100 Mcg/5 Mcg Inhaler) 1 puff INH BID-RT [facility] Last Admin: 05/13/18 07:48 Dose: 1 puff Nitroglycerin (Nitrostat) 0.4 mg SL Q5MIN PRN PRN Reason: Chest Pain Ondansetron HCl (Zofran) 4 mg IVP Q6H PRN PRN Reason: Nausea/Vomiting Last Admin: 05/10/18 09:08 Dose: 4 mg Senna (Senokot) 2 tab PO HSPRN PRN PRN Reason: Constipation Sodium Chloride (Flush - Normal Saline) 10 ml IVF Q12HR [facility] Last Admin: 05/13/18 09:15 Dose: 10 ml Sodium Chloride (Flush - Normal Saline) 10 ml IVF PRN PRN PRN Reason: Saline Flush Last Admin: 05/13/18 05:25 Dose: 10 ml Tramadol HCl (Ultram) 50 mg PO Q4H PRN PRN Reason: Moderate Pain (4-6) Last Admin: 05/13/18 10:10 Dose: 50 mg
[2018-05-13] MEDS: Famotidine 20 MG TAB PO SCH (21:05)
[2018-05-13] MEDS: Acetaminophen 325 MG TAB PO PRN (21:37)
[2018-05-13] MEDS ORDERED: Furosemide 20 MG/2 ML VIAL SLOW IVP SCH (21:45)
[2018-05-14] MEDS: Hydrocortisone Sod Succ/PF 100 mg/2 ml Vial IVP SCH ×4 (00:10→17:21)
[2018-05-14] MEDS: Acetaminophen 325 MG TAB PO PRN ×2 (04:15→11:31)
[2018-05-14] MEDS: Levothyroxine Sodium 75 MCG TAB PO SCH (05:35)
[2018-05-14 06:05] LABS: ALT (SGPT) 69 U/L (8-55); AST (SGOT) 39 U/L (5-34); Albumin 3.2 g/dL (3.4-4.8); Alkaline Phosphatase 80 U/L (40-150); Anion Gap 15 mmol/L (10-20); BUN (Urea Nitrogen) 24 mg/dL (9.8-20.1); Bilirubin, Total 0.5 mg/dL (0.2-1.2); Calc. Creatinine Clearance 56 mL/min (70-130); Calcium 8.6 mg/dL (7.8-10.44); Carbon Dioxide 21 mmol/L (23-31); Chloride 105 mmol/L (98-107); Estimated GFR-MDRD 51; Glucose 124 mg/dL (83-110); Potassium 3.4 mmol/L (3.5-5.1); Protein, Total 5.2 g/dL (6.0-8.3); Sodium 138 mmol/L (136-145)
[2018-05-14] MEDS: Mometasone/Formoterol 120 PUFF INHALER INH SCH ×2 (07:27→19:14)
[2018-05-14 07:57] LABS: Band 10 % (5-11); Hemoglobin 8.4 g/dL (12.0-16.0); Lymphocytes 9 % (21-51); MDiff Complete? YES; Mean Corpuscular HGB CONC 34.6 g/dL (32.0-36.0); Mean Corpuscular Hemoglobin 33.3 pg (27.0-31.0); Mean Corpuscular Volume 96.2 fL (78.0-98.0); Mean Platelet Volume 7.2 fL (7.4-10.4); Metamyelocyte 1 % (0-0); Monocytes 7 % (0-10); Neutrophil 73 % (42-75); PLT Morphology Comment Appears Adequate; Platelet Count 223 thou/uL (130-400); Polychromasia SLIGHT = 2-3 cells (100X) (0-2/hpf); RBC Distribution Width 12.6 % (11.5-14.5); Red Blood Cell (RBC) Count 2.52 mill/uL (4.20-5.40); White Blood Cell (WBC) Count 8.8 thou/uL (4.8-10.8)
[2018-05-14] MEDS: Heparin 5,000 UNITS/ML VIAL SC SCH ×3 (08:50→20:32)
[2018-05-14] MEDS: cefTRIAXone\\ROCEPHIN 2 GM in Sodium Chloride 0.9% 100 ML IVPB SCH (08:51)
[2018-05-14] MEDS: Potassium Chloride 20 MEQ TAB PO SCH ×2 (08:51→11:32)
[2018-05-14] MEDS: Ferrous Sulfate 325 MG TAB PO SCH (17:21)
[2018-05-14] MEDS: Famotidine 20 MG TAB PO SCH (20:33)
[2018-05-14] MEDS: traMADol HCl 50 MG TAB PO PRN (20:40)
--- NOTE | 2018-05-14 23:31 | PDOC.PN ---
- Subjective Encounter Start Date: 05/14/18 Encounter Start Time: 12:00 Patient seen and examined by me. Patient was wheezing when seen. Patient states that she wants to go home now. Explained to patient that we will try levofloxacin and some respiratory tx today and if she get better then will D/C - Objective Resuscitation Status: Resuscitation Status FULL:Full Resuscitation MAR Reviewed: Yes Vital Signs & Weight: Vital Signs (12 hours) Temp Pulse Resp BP Pulse Ox 05/14/18 22:50 78 16 05/14/18 20:00 96.4 F L 72 20 137/65 97 05/14/18 19:14 76 16 98 05/14/18 15:12 97.5 F L 70 20 134/60 Weight Weight 166 lb 4.8 oz Most Recent Monitor Data Heart Rate from ECG 88 NIBP 100/57 NIBP BP-Mean 83 Respiration from ECG 19 SpO2 97 I&O: 05/13/18 05/14/18 05/15/18 06:59 06:59 06:59 Intake Total 7683 626 9353 Output Total 3100 2900 750 Balance -1619 264 Result Diagrams: 05/14/18 05:03 05/14/18 05:03 Additional Labs: Accuchecks 05/14/18 05/14/18 05/14/18 20:45 16:57 10:36 POC Glucose 101 103 118 H 05/14/18 05:56 POC Glucose 131 H Phys Exam - Physical Examination Constitutional: NAD HEENT: PERRLA, moist MMs Neck: no JVD Respiratory: no wheezing, no rales, no rhonchi Cardiovascular: RRR, no significant murmur Gastrointestinal: non-tender, no distention, positive bowel sounds Musculoskeletal: no edema, pulses present Neurological: non-focal, moves all 4 limbs Psychiatric: A&O x 3 Dx/Plan (1) Bacteremia Code(s): R78.81 - BACTEREMIA Status: Acute Comment: started Po levofloxacin. Since patient claims that she has allergies to cipro, we will observe patient closely. IF patient tolerates then will discharge patient on levofloxacin. (2) Septic shock Code(s): A41.9 - SEPSIS, UNSPECIFIED ORGANISM; R65.21 - SEVERE SEPSIS WITH SEPTIC SHOCK Status: Resolved Comment: resolved (3) UTI (urinary tract infection) Status: Resolved Comment: ID on the case. Per ID CT abd/pelvis was to be ordered for stone protocol. Results of the test has been negative. Will consider picc line if patient is going to be on assisted antibiotics and discharge the patient to Subacute rehab facility. Will continue IV antibiotics at this time. (4) [place] disease Code(s): E27.1 - PRIMARY ADRENOCORTICAL INSUFFICIENCY Status: Chronic Comment: on IV steriods. will convert to po steriods in the AM. (5) Asthma Code(s): J45.909 - UNSPECIFIED ASTHMA, UNCOMPLICATED Status: Chronic Comment : wheezing. will continue dunonebs and symbicort (6) Hypothyroidism Code(s): E03.9 - HYPOTHYROIDISM, UNSPECIFIED Status: Chronic Comment: stable (7) Addisonian crisis Status: Acute Comment: continue steriods (8) SHAHID (acute kidney injury) Code(s): N17.9 - ACUTE KIDNEY FAILURE, UNSPECIFIED Status: Acute Comment: improving. will continue to follow nephros recs. (9) Electrolyte abnormality Code(s): E87.8 - OTH DISORDERS OF ELECTROLYTE AND FLUID BALANCE, NEC Status: Acute Comment: repleted - Plan * . Review of Systems - Review of Systems Constitutional: negative: fever, chills, sweats, weakness, malaise, other Eyes: negative: Pain, Vision Change, Conjunctivae Inflammation, Eyelid Inflammation, Redness, Other ENT: negative: Ear Pain, Ear Discharge, Nose Pain, Nose Discharge, Nose Congestion, Mouth Pain, Mouth Swelling, Throat Pain, Throat Swelling, Other Respiratory: Wheezing. negative: Cough, Dry, Shortness of Breath, Hemoptysis, SOB with Excertion, Pleuritic Pain, Sputum Cardiovascular: negative: chest pain, palpitations, orthopnea, paroxysmal nocturnal dyspnea, edema, light headedness, other Gastrointestinal: negative: Nausea, Vomiting, Abdominal Pain, Diarrhea, Constipation, Melena, Hematochezia, Other Genitourinary: negative: Dysuria, Frequency, Incontinence, Hematuria, Retention , Other Musculoskeletal: negative: Neck Pain, Shoulder Pain, Arm Pain, Back Pain, Hand Pain, Leg Pain, Foot Pain, Other Skin: negative: Rash, Lesions, Josue, Bruising, Other Neurological: negative: Weakness, Numbness, Incoordination, Change in Speech, Confusion, Seizures, Other - Medications/Allergies Allergies/Adverse Reactions: Allergies Allergy/AdvReac Type Severity Reaction Status Date / Time ciprofloxacin [From Cipro] Allergy Verified 08/25/14 09:37 propoxyphene napsylate Allergy Verified 08/25/14 09:37 [From Darvocet-N 100] Medications: Current Medications Acetaminophen (Tylenol) 650 mg PO Q4H PRN PRN Reason: Headache/Fever or Pain Last Admin: 05/14/18 11:31 Dose: 650 mg Al Hydroxide/Mg Hydroxide (Maalox) 30 ml PO Q6H PRN PRN Reason: Heartburn or Indigestion Albuterol/Ipratropium (Duoneb) 3 ml NEB [id number] PRN PRN Reason: SOB &/or Wheezing Last Admin: 05/14/18 22:50 Dose: 3 ml Ascorbic Acid (Vitamin C) 500 mg PO DAILY [facility] Benzonatate (Tessalon) 100 mg PO Q4H PRN PRN Reason: Cough Bisacodyl (Dulcolax) 10 mg PO DAILYPRN PRN PRN Reason: Constipation Calcium Carbonate (Tums) 1,000 mg PO Q4H PRN PRN Reason: Heartburn or Indigestion Clonidine (Catapres) 0.1 mg PO Q4H PRN PRN Reason: Systolic BP > 160 Dextrose/Water (Dextrose 50%) 25 gm SLOW IVP PRN PRN PRN Reason: Hypoglycemia Diphenhydramine HCl (Benadryl) 25 mg PO HSPRN PRN PRN Reason: Itching & Insomnia Last Admin: 05/11/18 21:16 Dose: 25 mg Famotidine (Pepcid) 20 mg PO 2100 [facility] Last Admin: 05/14/18 20:33 Dose: 20 mg Ferrous Sulfate (Feosol) 325 mg PO BID-WM [facility] Last Admin: 05/14/18 17:21 Dose: 325 mg Glucagon (Glucagon) 1 mg IM PRN PRN PRN Reason: Hypoglycemia Guaifenesin (Robitussin Sf) 200 mg PO Q4H PRN PRN Reason: Cough Heparin Sodium (Porcine) (Heparin) 5,000 units SC TID [facility] Last Admin: 05/14/18 20:32 Dose: 5,000 units Hydralazine HCl (Apresoline) 10 mg SLOW IVP Q4H PRN PRN Reason: Systolic BP > 170 Hydrocortisone Sodium Succinate (Solu-Cortef) 50 mg IVP Q6HR [facility] Last Admin: 05/14/18 17:21 Dose: 50 mg Dextrose/Water (D5w) 1,000 mls @ 0 mls/hr IV .Q0M PRN PRN Reason: Hypoglycemia Insulin Human Lispro (Humalog) 0 units SC .MODERATE SLIDING SC PRN; Protocol PRN Reason: MODERATE SLIDING SCALE Last Admin: 05/11/18 12:05 Dose: 2 unit Levofloxacin (Levaquin) 500 mg PO 0600 [facility] Levothyroxine Sodium (Synthroid) 75 mcg PO 0600 [facility] Last Admin: 05/14/18 05:35 Dose: 75 mcg Mometasone Furoate/Formoterol Fumar (Dulera 100 Mcg/5 Mcg Inhaler) 1 puff INH BID-RT [facility] Last Admin: 05/14/18 19:14 Dose: 1 puff Nitroglycerin (Nitrostat) 0.4 mg SL Q5MIN PRN PRN Reason: Chest Pain Ondansetron HCl (Zofran) 4 mg IVP Q6H PRN PRN Reason: Nausea/Vomiting Last Admin: 05/10/18 09:08 Dose: 4 mg Senna (Senokot) 2 tab PO HSPRN PRN PRN Reason: Constipation Sodium Chloride (Flush - Normal Saline) 10 ml IVF Q12HR [facility] Last Admin: 05/14/18 20:32 Dose: 10 ml Sodium Chloride (Flush - Normal Saline) 10 ml IVF PRN PRN PRN Reason: Saline Flush Last Admin: 05/13/18 05:25 Dose: 10 ml Tramadol HCl (Ultram) 50 mg PO Q4H PRN PRN Reason: Moderate Pain (4-6) Last Admin: 05/14/18 20:40 Dose: 50 mg
[2018-05-15] MEDS: traMADol HCl 50 MG TAB PO PRN ×2 (00:41→20:32)
[2018-05-15] MEDS: Hydrocortisone Sod Succ/PF 100 mg/2 ml Vial IVP SCH ×5 (00:43→23:23)
[2018-05-15] MEDS: diphenhydrAMINE 25 MG CAP PO PRN (00:46)
[2018-05-15 05:12] LABS: ALT (SGPT) 76 U/L (8-55); AST (SGOT) 41 U/L (5-34); Albumin 3.2 g/dL (3.4-4.8); Alkaline Phosphatase 75 U/L (40-150); Anion Gap 13 mmol/L (10-20); BUN (Urea Nitrogen) 27 mg/dL (9.8-20.1); Bilirubin, Total 0.5 mg/dL (0.2-1.2); Calc. Creatinine Clearance 62 mL/min (70-130); Calcium 8.9 mg/dL (7.8-10.44); Carbon Dioxide 21 mmol/L (23-31); Chloride 105 mmol/L (98-107); Estimated GFR-MDRD 58; Globulin 1.9 g/dL (2.4-3.5); Glucose 81 mg/dL (83-110); Potassium 3.7 mmol/L (3.5-5.1); Protein, Total 5.1 g/dL (6.0-8.3); Sodium 135 mmol/L (136-145)
[2018-05-15] MEDS: Ondansetron HCl/PF 4 MG/2 ML Vial IVP PRN (05:36)
[2018-05-15 05:41] LABS: Band 4 % (5-11); Eosinophils 1 % (0-10); Hemoglobin 8.7 g/dL (12.0-16.0); Lymphocytes 21 % (21-51); MDiff Complete? YES; Mean Corpuscular HGB CONC 34.8 g/dL (32.0-36.0); Mean Corpuscular Hemoglobin 34.1 pg (27.0-31.0); Mean Corpuscular Volume 97.9 fL (78.0-98.0); Mean Platelet Volume 6.9 fL (7.4-10.4); Metamyelocyte 3 % (0-0); Monocytes 5 % (0-10); Myelocyte 3 % (0-0); Neutrophil 63 % (42-75); Nucleated RBC 1 % (0); PLT Morphology Comment Appears Adequate; Platelet Count 261 thou/uL (130-400); RBC Distribution Width 12.6 % (11.5-14.5); Red Blood Cell (RBC) Count 2.54 mill/uL (4.20-5.40); White Blood Cell (WBC) Count 10.4 thou/uL (4.8-10.8)
[2018-05-15] MEDS: Levothyroxine Sodium 75 MCG TAB PO SCH (05:49)
[2018-05-15] MEDS: Mometasone/Formoterol 120 PUFF INHALER INH SCH ×2 (07:04→19:19)
[2018-05-15] MEDS: Ascorbic Acid 500 mg Chewable Tablet PO SCH (08:15)
[2018-05-15] MEDS: Ferrous Sulfate 325 MG TAB PO SCH ×2 (08:15→19:13)
[2018-05-15] MEDS: Heparin 5,000 UNITS/ML VIAL SC SCH ×3 (10:04→20:32)
[2018-05-15] MEDS: Furosemide 20 MG/2 ML VIAL SLOW IVP SCH ×2 (10:28→14:49)
[2018-05-15] MEDS: Acetaminophen 325 MG TAB PO PRN (17:08)
[2018-05-15] MEDS: Famotidine 20 MG TAB PO SCH (20:32)
--- NOTE | 2018-05-15 21:55 | PDOC.PN ---
- Subjective Encounter Start Date: 05/15/18 Encounter Start Time: 14:00 Patient seen and examined. NAD - Objective Resuscitation Status: Resuscitation Status FULL:Full Resuscitation MAR Reviewed: Yes Vital Signs & Weight: Vital Signs (12 hours) Temp Pulse Resp BP BP Pulse Ox 05/15/18 20:22 98 F 76 20 122/59 L 94 L 05/15/18 19:19 77 16 100 05/15/18 17:00 98.0 F 59 L 20 138/65 94 L 05/15/18 12:50 99.1 F 79 18 113/59 L 96 Weight Weight 166 lb 4.8 oz Most Recent Monitor Data Heart Rate from ECG 88 NIBP 100/57 NIBP BP-Mean 83 Respiration from ECG 19 SpO2 97 I&O: 05/14/18 05/15/18 05/16/18 06:59 06:59 06:59 Intake Total 898 1014 750 Output Total 2900 750 3250 Balance -2001 264 -2500 Result Diagrams: 05/19/18 04:54 05/19/18 04:54 Additional Labs: Accuchecks 05/15/18 05/15/18 05/15/18 20:44 16:48 10:44 POC Glucose 145 H 100 88 05/15/18 05:34 POC Glucose 73 Phys Exam - Physical Examination Constitutional: NAD HEENT: PERRLA, moist MMs Neck: no JVD, supple, full ROM Respiratory: no wheezing, no rales, no rhonchi, clear to auscultation bilateral Cardiovascular: RRR, no significant murmur, no rub Gastrointestinal: soft, non-tender, no distention, positive bowel sounds Musculoskeletal: edema present Neurological: non-focal, normal sensation, moves all 4 limbs Psychiatric: normal affect, A&O x 3 Skin: no rash Dx/Plan (1) Bilateral edema of lower extremity Code(s): R60.0 - LOCALIZED EDEMA Status: Acute Comment: lasix to help with the edema. Will do cmp to follow up potassium levels in the morning. If patient' s edema resolves then patient can be discharged home. Patient is clinically optimized and stable to be discharged. All consultants has cleared the patient to go home. Patient will leave with levofloxacin 5 more days. (2) Bacteremia Code(s): R78.81 - BACTEREMIA Status: Resolved Comment: tolerated levofloxacin. 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 will convert to po steriods in the AM. (6) Asthma Code(s): J45.909 - UNSPECIFIED ASTHMA, UNCOMPLICATED Status: Chronic Comment : wheezing. will continue dunonebs and symbicort (7) Hypothyroidism Code(s): E03.9 - HYPOTHYROIDISM, UNSPECIFIED Status: Chronic Comment: stable (8) Addisonian crisis Status: Acute Comment: Taper patient on steriods. She takes 5mg at home but taper her of IV steriods when she is ready to go home. (9) SHAHID (acute kidney injury) Code(s): N17.9 - ACUTE KIDNEY FAILURE, UNSPECIFIED Status: Resolved Comment : improving. will continue to follow nephros recs. (10) Electrolyte abnormality Code(s): E87.8 - OTH DISORDERS OF ELECTROLYTE AND FLUID BALANCE, NEC Status: Resolved Comment: repleted - Plan * . Review of Systems - Review of Systems Constitutional: negative: fever, chills, sweats, weakness, malaise, other Eyes: negative: Pain, Vision Change, Conjunctivae Inflammation, Eyelid Inflammation, Redness, Other ENT: negative: Ear Pain, Ear Discharge, Nose Pain, Nose Discharge, Nose Congestion, Mouth Pain, Mouth Swelling, Throat Pain, Throat Swelling, Other Respiratory: negative: Cough, Dry, Shortness of Breath, Hemoptysis, SOB with Excertion, Pleuritic Pain, Sputum, Wheezing Cardiovascular: edema. negative: chest pain, palpitations, orthopnea, paroxysmal nocturnal dyspnea, light headedness, other Gastrointestinal: negative: Nausea, Vomiting, Abdominal Pain, Diarrhea, Constipation, Melena, Hematochezia, Other Genitourinary: negative: Dysuria, Frequency, Incontinence, Hematuria, Retention , Other Musculoskeletal: negative: Neck Pain, Shoulder Pain, Arm Pain, Back Pain, Hand Pain, Leg Pain, Foot Pain, Other Skin: negative: Rash, Lesions, Josue, Bruising, Other Neurological: negative: Weakness, Numbness, Incoordination, Change in Speech, Confusion, Seizures, Other - Medications/Allergies Allergies/Adverse Reactions: Allergies Allergy/AdvReac Type Severity Reaction Status Date / Time ciprofloxacin [From Cipro] Allergy Verified 08/25/14 09:37 propoxyphene napsylate Allergy Verified 08/25/14 09:37 [From Darvocet-N 100] Medications: Current Medications Acetaminophen (Tylenol) 650 mg PO Q4H PRN PRN Reason: Headache/Fever or Pain Last Admin: 05/15/18 17:08 Dose: 650 mg Al Hydroxide/Mg Hydroxide (Maalox) 30 ml PO Q6H PRN PRN Reason: Heartburn or Indigestion Albuterol/Ipratropium (Duoneb) 3 ml NEB [id number] PRN PRN Reason: SOB &/or Wheezing Last Admin: 05/14/18 22:50 Dose: 3 ml Ascorbic Acid (Vitamin C) 500 mg PO DAILY [facility] Last Admin: 05/15/18 08:15 Dose: 500 mg Benzonatate (Tessalon) 100 mg PO Q4H PRN PRN Reason: Cough Last Admin: 05/15/18 00:46 Dose: 100 mg Bisacodyl (Dulcolax) 10 mg PO DAILYPRN PRN PRN Reason: Constipation Calcium Carbonate (Tums) 1,000 mg PO Q4H PRN PRN Reason: Heartburn or Indigestion Clonidine (Catapres) 0.1 mg PO Q4H PRN PRN Reason: Systolic BP > 160 Dextrose/Water (Dextrose 50%) 25 gm SLOW IVP PRN PRN PRN Reason: Hypoglycemia Diphenhydramine HCl (Benadryl) 25 mg PO HSPRN PRN PRN Reason: Itching & Insomnia Last Admin: 05/15/18 00:46 Dose: 25 mg Famotidine (Pepcid) 20 mg PO 2100 [facility] Last Admin: 05/15/18 20:32 Dose: 20 mg Ferrous Sulfate (Feosol) 325 mg PO BID-WM [facility] Last Admin: 05/15/18 19:13 Dose: 325 mg Furosemide (Lasix) 20 mg SLOW IVP 0600,1400 [facility] Last Admin: 05/15/18 14:49 Dose: 20 mg Glucagon (Glucagon) 1 mg IM PRN PRN PRN Reason: Hypoglycemia Guaifenesin (Robitussin Sf) 200 mg PO Q4H PRN PRN Reason: Cough Heparin Sodium (Porcine) (Heparin) 5,000 units SC TID [facility] Last Admin: 05/15/18 20:32 Dose: 5,000 units Hydralazine HCl (Apresoline) 10 mg SLOW IVP Q4H PRN PRN Reason: Systolic BP > 170 Hydrocortisone Sodium Succinate (Solu-Cortef) 50 mg IVP Q6HR [facility] Last Admin: 05/15/18 19:14 Dose: 50 mg Dextrose/Water (D5w) 1,000 mls @ 0 mls/hr IV .Q0M PRN PRN Reason: Hypoglycemia Insulin Human Lispro (Humalog) 0 units SC .MODERATE SLIDING SC PRN; Protocol PRN Reason: MODERATE SLIDING SCALE Last Admin: 05/11/18 12:05 Dose: 2 unit Levofloxacin (Levaquin) 500 mg PO 0600 [facility] Last Admin: 05/15/18 05:49 Dose: 500 mg Levothyroxine Sodium (Synthroid) 75 mcg PO 0600 [facility] Last Admin: 05/15/18 05:49 Dose: 75 mcg Mometasone Furoate/Formoterol Fumar (Dulera 100 Mcg/5 Mcg Inhaler) 1 puff INH BID-RT [facility] Last Admin: 05/15/18 19:19 Dose: 1 puff Nitroglycerin (Nitrostat) 0.4 mg SL Q5MIN PRN PRN Reason: Chest Pain Ondansetron HCl (Zofran) 4 mg IVP Q6H PRN PRN Reason: Nausea/Vomiting Last Admin: 05/15/18 05:36 Dose: 4 mg Senna (Senokot) 2 tab PO HSPRN PRN PRN Reason: Constipation Sodium Chloride (Flush - Normal Saline) 10 ml IVF Q12HR [facility] Last Admin: 05/15/18 20:35 Dose: 10 ml Sodium Chloride (Flush - Normal Saline) 10 ml IVF PRN PRN PRN Reason: Saline Flush Last Admin: 05/15/18 19:14 Dose: 10 ml Tramadol HCl (Ultram) 50 mg PO Q4H PRN PRN Reason: Moderate Pain (4-6) Last Admin: 05/15/18 20:32 Dose: 50 mg
[2018-05-16] MEDS: traMADol HCl 50 MG TAB PO PRN ×2 (02:31→21:05)
[2018-05-16] MEDS: diphenhydrAMINE 25 MG CAP PO PRN ×2 (02:35→21:04)
[2018-05-16 05:34] LABS: ALT (SGPT) 60 U/L (8-55); AST (SGOT) 25 U/L (5-34); Albumin 3.2 g/dL (3.4-4.8); Alkaline Phosphatase 73 U/L (40-150); Anion Gap 17 mmol/L (10-20); BUN (Urea Nitrogen) 27 mg/dL (9.8-20.1); Bilirubin, Total 0.5 mg/dL (0.2-1.2); Calc. Creatinine Clearance 54 mL/min (70-130); Calcium 8.8 mg/dL (7.8-10.44); Carbon Dioxide 24 mmol/L (23-31); Chloride 98 mmol/L (98-107); Estimated GFR-MDRD 52; Globulin 1.9 g/dL (2.4-3.5); Glucose 133 mg/dL (83-110); Potassium 3.2 mmol/L (3.5-5.1); Protein, Total 5.1 g/dL (6.0-8.3); Sodium 136 mmol/L (136-145)
[2018-05-16 05:58] LABS: Band 20 % (5-11); Hemoglobin 9.3 g/dL (12.0-16.0); Lymphocytes 8 % (21-51); MDiff Complete? YES; Mean Corpuscular HGB CONC 34.5 g/dL (32.0-36.0); Mean Corpuscular Hemoglobin 33.3 pg (27.0-31.0); Mean Corpuscular Volume 96.5 fL (78.0-98.0); Monocytes 4 % (0-10); Myelocyte 1 % (0-0); Neutrophil 66 % (42-75); Platelet Count 281 thou/uL (130-400); RBC Distribution Width 12.7 % (11.5-14.5); Reactive Lymphocytes 1 % (0-10); White Blood Cell (WBC) Count 10.2 thou/uL (4.8-10.8)
[2018-05-16] MEDS: Levothyroxine Sodium 75 MCG TAB PO SCH (06:39)
[2018-05-16] MEDS: Furosemide 20 MG/2 ML VIAL SLOW IVP SCH ×2 (06:40→15:56)
[2018-05-16] MEDS: Hydrocortisone Sod Succ/PF 100 mg/2 ml Vial IVP SCH (06:44)
[2018-05-16] MEDS: Mometasone/Formoterol 120 PUFF INHALER INH SCH ×2 (07:09→18:45)
[2018-05-16] MEDS: Acetaminophen 325 MG TAB PO PRN (09:32)
[2018-05-16] MEDS: Ascorbic Acid 500 mg Chewable Tablet PO SCH (09:33)
[2018-05-16] MEDS: Ferrous Sulfate 325 MG TAB PO SCH ×2 (09:33→18:01)
[2018-05-16] MEDS: Heparin 5,000 UNITS/ML VIAL SC SCH ×3 (09:33→21:04)
[2018-05-16] MEDS: Potassium Chloride 20 MEQ TAB PO SCH ×2 (09:33→18:05)
[2018-05-16] MEDS ORDERED: predniSONE 20 MG TAB PO SCH (10:00)
[2018-05-16] MEDS ORDERED: Magnesium Sulfate 4 GM in Sodium Chloride 0.9% 250 ML 250 ML IVPB SCH (10:00)
[2018-05-16] MEDS: predniSONE 20 MG TAB PO SCH (13:00)
--- NOTE | 2018-05-16 13:25 | PRG ---
DATE OF SERVICE: 05/14/2018 HISTORY: Ms. Pinon is feeling better, sitting by the bedside. Denies any chest pain, no abdominal pain, no diarrhea. OBJECTIVE: VITAL SIGNS: T-max 99.1, BP 118/56, pulse 83. GENERAL: Appears in no distress. LUNGS: Clear. HEART: S1, S2, regular rate. ABDOMEN: Soft. EXTREMITIES: Peripheral IV access. LABORATORY DATA: White cell count 8.8, hemoglobin 8.4, platelets 223 and 72% neutrophils, 10% bands. Chemistry with sodium 138, potassium 3.4, creatinine 1.05, AST 39, ALT 69, albumin 3.2. Microbiolo gy with E. coli which is resistant to ampicillin and piperacillin, tazobactam and Bactrim, but suscep tible to quinolones. ASSESSMENT AND DISCUSSION: History of prior urinary tract infections, Freeborn's disease, hypothyroid ism, admitted with urosepsis secondary to fairly susceptible Escherichia coli except for ampicillin a nd Bactrim and piperacillin, tazobactam. Still having some bronchoconstriction intermittently. CT s tone protocol did not show any evidence of obstruction. The plan now is to try levofloxacin. The re ported history of allergy to CIPROFLOXACIN is not a clear-cut hypersensitivity reaction and the cipro floxacin might have behaved as an innocent bystander at that time when she had the ablation procedure . I have discussed with patient and will try with levofloxacin to see if she can tolerate it. That way, she would avoid having to a PICC line and continue Rocephin in the outpatient setting. Total du ration of therapy anywhere from around 14 days approximately.
--- NOTE | 2018-05-16 15:29 | ULT ---
BILATERAL LOWER EXTREMITY VENOUS DOPPLER ULTRASOUND: Date: 05/16/18 HISTORY: Bilateral lower extremity swelling. TECHNIQUE: Pyle scale ultrasound with color flow and spectral Doppler imaging of the deep venous systems of the lower extremities was performed bilaterally. FINDINGS: There is good flow, compression, and augmentation noted in the common femoral, femoral, deep femoral, popliteal, posterior tibial, and greater saphenous veins on either side. IMPRESSION: No evidence of deep venous thrombosis in either lower extremity. POS: EVA
[2018-05-16] MEDS: Magnesium Chloride 64 MG TAB PO SCH (21:04)
[2018-05-16] MEDS: Famotidine 20 MG TAB PO SCH (21:04)
--- NOTE | 2018-05-16 21:16 | PDOC.PN ---
- Subjective Encounter Start Date: 05/16/18 Encounter Start Time: 12:30 Patient seen and examined for Sepsis. c/o B/L LE pain with swelling - worse on ambulation. Feels gen weak. No new complaints. No overnight events - Objective Resuscitation Status: Resuscitation Status FULL:Full Resuscitation MAR Reviewed: Yes Vital Signs & Weight: Vital Signs (12 hours) Temp Pulse Resp BP BP Pulse Ox 05/16/18 20:56 98.3 F 75 16 135/64 95 05/16/18 18:48 94 L 05/16/18 18:45 89 16 94 L 05/16/18 16:00 98.3 F 69 20 137/63 Weight Weight 158 lb 6.4 oz Most Recent Monitor Data Heart Rate from ECG 88 NIBP 100/57 NIBP BP-Mean 83 Respiration from ECG 19 SpO2 97 I&O: 05/15/18 05/16/18 05/17/18 06:59 06:59 06:59 Intake Total 1014 1507 Output Total 750 4150 Balance 264 -2643 Result Diagrams: 05/16/18 04:47 05/17/18 04:48 Additional Labs: Accuchecks 05/16/18 05/16/18 05/16/18 20:29 16:14 10:54 POC Glucose 135 H 128 H 115 H 05/16/18 05:28 POC Glucose 116 H EKG Reviewed by me: Yes (Tele SR) Phys Exam - Physical Examination Constitutional: NAD Respiratory: no wheezing, no rhonchi Cardiovascular: RRR, no rub Gastrointestinal: soft, positive bowel sounds Musculoskeletal: edema present calf tenderness Neurological: moves all 4 limbs Dx/Plan - Plan DVT proph w/heparin, DVT proph w/SCDs IMPRESSION: 1. Severe sepsis with acute organ dysfunction/Septic shock due to Ecoli bacteremia/UTI 2. Hypokalemia 3. Hypomagnesemia 4. B/L LE edema with pain 5. Chronic adrenal insufficiency 6. Other issues per previous notes PLAN: Replace Mg and Potassium B/L LE doppler to r/o DVT Cont Levaquin per ID - I d/w Dr Miller AM labs Change IV Hydrocortisone to Prednisone 20 mg BID - Will taper to home dose over next 5-7 days DC in AM if stable Laboratory Tests 05/16/18 05/16/18 04:47 04:47 Potassium 3.2 L Magnesium 1.0 L Review of Systems - Review of Systems Constitutional: weakness. negative: fever, chills, sweats, malaise, other Cardiovascular: negative: chest pain, palpitations, orthopnea, paroxysmal nocturnal dyspnea, edema, light headedness, other Gastrointestinal: negative: Nausea, Vomiting, Abdominal Pain, Diarrhea, Constipation, Melena, Hematochezia, Other - Medications/Allergies Allergies/Adverse Reactions: Allergies Allergy/AdvReac Type Severity Reaction Status Date / Time ciprofloxacin [From Cipro] Allergy Verified 08/25/14 09:37 propoxyphene napsylate Allergy Verified 08/25/14 09:37 [From Darvocet-N 100] Medications: Current Medications Acetaminophen (Tylenol) 650 mg PO Q4H PRN PRN Reason: Headache/Fever or Pain Last Admin: 05/16/18 09:32 Dose: 650 mg Al Hydroxide/Mg Hydroxide (Maalox) 30 ml PO Q6H PRN PRN Reason: Heartburn or Indigestion Albuterol/Ipratropium (Duoneb) 3 ml NEB [id number] PRN PRN Reason: SOB &/or Wheezing Last Admin: 05/16/18 01:36 Dose: 3 ml Ascorbic Acid (Vitamin C) 500 mg PO DAILY [facility] Last Admin: 05/16/18 09:33 Dose: 500 mg Benzonatate (Tessalon) 100 mg PO Q4H PRN PRN Reason: Cough Last Admin: 05/15/18 00:46 Dose: 100 mg Bisacodyl (Dulcolax) 10 mg PO DAILYPRN PRN PRN Reason: Constipation Calcium Carbonate (Tums) 1,000 mg PO Q4H PRN PRN Reason: Heartburn or Indigestion Clonidine (Catapres) 0.1 mg PO Q4H PRN PRN Reason: Systolic BP > 160 Dextrose/Water (Dextrose 50%) 25 gm SLOW IVP PRN PRN PRN Reason: Hypoglycemia Diphenhydramine HCl (Benadryl) 25 mg PO HSPRN PRN PRN Reason: Itching & Insomnia Last Admin: 05/16/18 21:04 Dose: 25 mg Famotidine (Pepcid) 20 mg PO 2100 [facility] Last Admin: 05/16/18 21:04 Dose: 20 mg Ferrous Sulfate (Feosol) 325 mg PO BID-WM [facility] Last Admin: 05/16/18 18:01 Dose: 325 mg Furosemide (Lasix) 20 mg SLOW IVP 0600,1400 [facility] Last Admin: 05/16/18 15:56 Dose: 20 mg Glucagon (Glucagon) 1 mg IM PRN PRN PRN Reason: Hypoglycemia Guaifenesin (Robitussin Sf) 200 mg PO Q4H PRN PRN Reason: Cough Heparin Sodium (Porcine) (Heparin) 5,000 units SC TID [facility] Last Admin: 05/16/18 21:04 Dose: 5,000 units Hydralazine HCl (Apresoline) 10 mg SLOW IVP Q4H PRN PRN Reason: Systolic BP > 170 Dextrose/Water (D5w) 1,000 mls @ 0 mls/hr IV .Q0M PRN PRN Reason: Hypoglycemia Insulin Human Lispro (Humalog) 0 units SC .MODERATE SLIDING SC PRN; Protocol PRN Reason: MODERATE SLIDING SCALE Last Admin: 05/11/18 12:05 Dose: 2 unit Levofloxacin (Levaquin) 500 mg PO 0600 [facility] Last Admin: 05/16/18 06:39 Dose: 500 mg Levothyroxine Sodium (Synthroid) 75 mcg PO 0600 [facility] Last Admin: 05/16/18 06:39 Dose: 75 mcg Magnesium Chloride (Slow-Mag) 64 mg PO BID [facility] Last Admin: 05/16/18 21:04 Dose: 64 mg Mometasone Furoate/Formoterol Fumar (Dulera 100 Mcg/5 Mcg Inhaler) 1 puff INH BID-RT [facility] Last Admin: 05/16/18 18:45 Dose: 1 puff Nitroglycerin (Nitrostat) 0.4 mg SL Q5MIN PRN PRN Reason: Chest Pain Ondansetron HCl (Zofran) 4 mg IVP Q6H PRN PRN Reason: Nausea/Vomiting Last Admin: 05/15/18 05:36 Dose: 4 mg Potassium Chloride (K-Dur) 20 meq PO BID-[facility] Last Admin: 05/16/18 18:05 Dose: 20 meq Prednisone (Prednisone) 20 mg PO BID-WM [facility] Last Admin: 05/16/18 13:00 Dose: 20 mg Senna (Senokot) 2 tab PO HSPRN PRN PRN Reason: Constipation Sodium Chloride (Flush - Normal Saline) 10 ml IVF Q12HR [facility] Last Admin: 05/16/18 21:04 Dose: 10 ml Sodium Chloride (Flush - Normal Saline) 10 ml IVF PRN PRN PRN Reason: Saline Flush Last Admin: 05/16/18 06:40 Dose: 5 ml Tramadol HCl (Ultram) 50 mg PO Q4H PRN PRN Reason: Moderate Pain (4-6) Last Admin: 05/16/18 21:05 Dose: 50 mg
[2018-05-17 05:37] LABS: ALT (SGPT) 53 U/L (8-55); AST (SGOT) 22 U/L (5-34); Albumin 3.3 g/dL (3.4-4.8); Alkaline Phosphatase 69 U/L (40-150); Anion Gap 14 mmol/L (10-20); BUN (Urea Nitrogen) 26 mg/dL (9.8-20.1); Bilirubin, Total 0.6 mg/dL (0.2-1.2); Calc. Creatinine Clearance 57 mL/min (70-130); Calcium 9.1 mg/dL (7.8-10.44); Carbon Dioxide 29 mmol/L (23-31); Chloride 96 mmol/L (98-107); Estimated GFR-MDRD 55; Glucose 87 mg/dL (83-110); Magnesium 1.7 mg/dL (1.6-2.6); Potassium 3.4 mmol/L (3.5-5.1); Protein, Total 5.3 g/dL (6.0-8.3); Sodium 136 mmol/L (136-145)
[2018-05-17] MEDS: Levothyroxine Sodium 75 MCG TAB PO SCH (06:32)
[2018-05-17] MEDS: Furosemide 20 MG/2 ML VIAL SLOW IVP SCH (06:33)
[2018-05-17 06:49] LABS: Band 14 % (5-11); Hemoglobin 9.7 g/dL (12.0-16.0); Lymphocytes 18 % (21-51); MDiff Complete? YES; Mean Corpuscular HGB CONC 35.2 g/dL (32.0-36.0); Mean Corpuscular Hemoglobin 34.1 pg (27.0-31.0); Mean Corpuscular Volume 97.1 fL (78.0-98.0); Mean Platelet Volume 6.3 fL (7.4-10.4); Monocytes 6 % (0-10); Neutrophil 62 % (42-75); Nucleated RBC 1 % (0); Platelet Count 364 thou/uL (130-400); Red Blood Cell (RBC) Count 2.85 mill/uL (4.20-5.40); White Blood Cell (WBC) Count 10.3 thou/uL (4.8-10.8)
[2018-05-17] MEDS: Mometasone/Formoterol 120 PUFF INHALER INH SCH ×2 (06:54→19:15)
[2018-05-17] MEDS: Ondansetron HCl/PF 4 MG/2 ML Vial IVP PRN (07:42)
[2018-05-17] MEDS: predniSONE 20 MG TAB PO SCH ×2 (09:51→16:59)
[2018-05-17] MEDS: Ascorbic Acid 500 mg Chewable Tablet PO SCH (09:51)
[2018-05-17] MEDS: Heparin 5,000 UNITS/ML VIAL SC SCH ×3 (09:51→20:53)
[2018-05-17] MEDS: Ferrous Sulfate 325 MG TAB PO SCH (09:52)
[2018-05-17] MEDS: Magnesium Chloride 64 MG TAB PO SCH ×2 (09:52→20:50)
[2018-05-17] MEDS: Potassium Chloride 20 MEQ TAB PO SCH ×2 (09:52→16:59)
[2018-05-17] MEDS: Nystatin 500,000 UNITS/5 ML UDCUP SSW SCH ×2 (16:59→20:51)
--- NOTE | 2018-05-17 20:40 | PDOC.PN ---
- Subjective Encounter Start Date: 05/17/18 Encounter Start Time: 12:00 Patient seen and examined for Sepsis. Nausea with vomiting 1 hr after Levaquin. No other complaints. No overnight events - Objective Resuscitation Status: Resuscitation Status FULL:Full Resuscitation MAR Reviewed: Yes Vital Signs & Weight: Vital Signs (12 hours) Temp Pulse Resp BP Pulse Ox 05/17/18 19:17 93 L 05/17/18 19:15 97 05/17/18 15:40 98.8 F 70 20 115/59 L 94 L Weight Weight 151 lb 11.2 oz Most Recent Monitor Data Heart Rate from ECG 88 NIBP 100/57 NIBP BP-Mean 83 Respiration from ECG 19 SpO2 97 I&O: 05/16/18 05/17/18 05/18/18 06:59 06:59 06:59 Intake Total 1507 322 Output Total 4150 1700 Balance -8166 -0913 Result Diagrams: 05/17/18 04:48 05/18/18 03:42 Additional Labs: Accuchecks 05/17/18 05/17/18 05/16/18 10:49 05:20 20:29 POC Glucose 94 84 135 H Radiology Reviewed by me: No (Doppler LE - No DVT) EKG Reviewed by me: Yes (Tele SR) Phys Exam - Physical Examination Constitutional: NAD Respiratory: no wheezing, no rhonchi Cardiovascular: RRR, no rub Gastrointestinal: soft, non-tender, positive bowel sounds Musculoskeletal: edema present (improving) Neurological: moves all 4 limbs Dx/Plan - Plan out of bed/ambulate, DVT proph w/heparin, DVT proph w/SCDs IMPRESSION: 1. Severe sepsis with acute organ dysfunction/Septic shock due to E coli bacteremia/E coli UTI 2. Hypokalemia 3. Hypomagnesemia 4. B/L LE edema with pain - DVT ruled out 5. Chronic adrenal insufficiency 6. Other issues per previous notes PLAN: Cont PO Potassium Cont Levaquin per ID - I d/w Dr Angela CARMEN later today if Nausea better. If not then patient may need PICC line for IV Ceftriaxone AM labs Cont Prednisone taper Zofran PRN Review of Systems - Review of Systems Respiratory: negative: Cough, Dry, Shortness of Breath, Hemoptysis, SOB with Excertion, Pleuritic Pain, Sputum, Wheezing Cardiovascular: negative: chest pain, palpitations, orthopnea, paroxysmal nocturnal dyspnea, edema, light headedness, other - Medications/Allergies Allergies/Adverse Reactions: Allergies Allergy/AdvReac Type Severity Reaction Status Date / Time ciprofloxacin [From Cipro] Allergy Verified 08/25/14 09:37 propoxyphene napsylate Allergy Verified 08/25/14 09:37 [From Darvocet-N 100] Medications: Current Medications Acetaminophen (Tylenol) 650 mg PO Q4H PRN PRN Reason: Headache/Fever or Pain Last Admin: 05/16/18 09:32 Dose: 650 mg Al Hydroxide/Mg Hydroxide (Maalox) 30 ml PO Q6H PRN PRN Reason: Heartburn or Indigestion Albuterol/Ipratropium (Duoneb) 3 ml NEB [id number] PRN PRN Reason: SOB &/or Wheezing Last Admin: 05/16/18 01:36 Dose: 3 ml Ascorbic Acid (Vitamin C) 500 mg PO DAILY [facility] Last Admin: 05/17/18 09:51 Dose: 500 mg Benzonatate (Tessalon) 100 mg PO Q4H PRN PRN Reason: Cough Last Admin: 05/15/18 00:46 Dose: 100 mg Bisacodyl (Dulcolax) 10 mg PO DAILYPRN PRN PRN Reason: Constipation Calcium Carbonate (Tums) 1,000 mg PO Q4H PRN PRN Reason: Heartburn or Indigestion Clonidine (Catapres) 0.1 mg PO Q4H PRN PRN Reason: Systolic BP > 160 Al Hydroxide/Mg Hydroxide 60 ml/ Lidocaine HCl 30 ml/Diphenhydramine HCl 75 mg 0 ml SSW PRN PRN PRN Reason: Mouth Irritation Dextrose/Water (Dextrose 50%) 25 gm SLOW IVP PRN PRN PRN Reason: Hypoglycemia Diphenhydramine HCl (Benadryl) 25 mg PO HSPRN PRN PRN Reason: Itching & Insomnia Last Admin: 05/16/18 21:04 Dose: 25 mg Famotidine (Pepcid) 20 mg PO 2100 [facility] Last Admin: 05/16/18 21:04 Dose: 20 mg Glucagon (Glucagon) 1 mg IM PRN PRN PRN Reason: Hypoglycemia Guaifenesin (Robitussin Sf) 200 mg PO Q4H PRN PRN Reason: Cough Heparin Sodium (Porcine) (Heparin) 5,000 units SC TID [facility] Last Admin: 05/17/18 16:59 Dose: 5,000 units Hydralazine HCl (Apresoline) 10 mg SLOW IVP Q4H PRN PRN Reason: Systolic BP > 170 Dextrose/Water (D5w) 1,000 mls @ 0 mls/hr IV .Q0M PRN PRN Reason: Hypoglycemia Insulin Human Lispro (Humalog) 0 units SC .MODERATE SLIDING SC PRN; Protocol PRN Reason: MODERATE SLIDING SCALE Last Admin: 05/11/18 12:05 Dose: 2 unit Levofloxacin (Levaquin) 500 mg PO 0600 [facility] Last Admin: 05/17/18 06:32 Dose: 500 mg Levothyroxine Sodium (Synthroid) 75 mcg PO 0600 [facility] Last Admin: 05/17/18 06:32 Dose: 75 mcg Magnesium Chloride (Slow-Mag) 64 mg PO BID [facility] Last Admin: 05/17/18 09:52 Dose: 64 mg Mometasone Furoate/Formoterol Fumar (Dulera 100 Mcg/5 Mcg Inhaler) 1 puff INH BID-RT [facility] Last Admin: 05/17/18 19:15 Dose: 1 puff Nitroglycerin (Nitrostat) 0.4 mg SL Q5MIN PRN PRN Reason: Chest Pain Nystatin (Mycostatin) 500,000 units SSW QID [facility] Last Admin: 05/17/18 16:59 Dose: 500,000 units Ondansetron HCl (Zofran) 4 mg IVP Q6H PRN PRN Reason: Nausea/Vomiting Last Admin: 05/17/18 07:42 Dose: 4 mg Potassium Chloride (K-Dur) 20 meq PO BID-[facility] Last Admin: 05/17/18 16:59 Dose: 20 meq Prednisone (Prednisone) 20 mg PO BID-[facility] Last Admin: 05/17/18 16:59 Dose: 20 mg Senna (Senokot) 2 tab PO HSPRN PRN PRN Reason: Constipation Sodium Chloride (Flush - Normal Saline) 10 ml IVF Q12HR [facility] Last Admin: 05/17/18 07:43 Dose: 10 ml Sodium Chloride (Flush - Normal Saline) 10 ml IVF PRN PRN PRN Reason: Saline Flush Last Admin: 05/17/18 06:33 Dose: 10 ml Tramadol HCl (Ultram) 50 mg PO Q4H PRN PRN Reason: Moderate Pain (4-6) Last Admin: 05/16/18 21:05 Dose: 50 mg
[2018-05-17] MEDS: diphenhydrAMINE 25 MG CAP PO PRN (20:50)
[2018-05-17] MEDS: Famotidine 20 MG TAB PO SCH (20:50)
[2018-05-17] MEDS: traMADol HCl 50 MG TAB PO PRN (20:50)
[2018-05-17] MEDS: Aluminum & Magnesium Hydroxide 60 ML, Lidocaine 2% Viscous Solution 30 ML, diphenhydrAM... SSW PRN (20:51)
[2018-05-18] MEDS: Ondansetron HCl/PF 4 MG/2 ML Vial IVP PRN (04:26)
[2018-05-18 04:31] LABS: Anion Gap 13 mmol/L (10-20); BUN (Urea Nitrogen) 26 mg/dL (9.8-20.1); Calc. Creatinine Clearance 54 mL/min (70-130); Calcium 9.1 mg/dL (7.8-10.44); Carbon Dioxide 27 mmol/L (23-31); Chloride 98 mmol/L (98-107); Estimated GFR-MDRD 55; Glucose 108 mg/dL (83-110); Magnesium 1.5 mg/dL (1.6-2.6); Potassium 4.1 mmol/L (3.5-5.1); Sodium 134 mmol/L (136-145)
[2018-05-18] MEDS: Aluminum & Magnesium Hydroxide 60 ML, Lidocaine 2% Viscous Solution 30 ML, diphenhydrAM... SSW PRN (05:36)
[2018-05-18] MEDS: Levothyroxine Sodium 75 MCG TAB PO SCH (05:36)
[2018-05-18] MEDS: Mometasone/Formoterol 120 PUFF INHALER INH SCH ×2 (07:16→19:03)
[2018-05-18] MEDS: Potassium Chloride 20 MEQ TAB PO SCH (08:55)
[2018-05-18] MEDS: Nystatin 500,000 UNITS/5 ML UDCUP SSW SCH ×4 (08:55→20:21)
[2018-05-18] MEDS: predniSONE 20 MG TAB PO SCH ×2 (08:55→16:18)
[2018-05-18] MEDS: Ascorbic Acid 500 mg Chewable Tablet PO SCH (08:55)
[2018-05-18] MEDS: Heparin 5,000 UNITS/ML VIAL SC SCH ×3 (08:56→20:21)
[2018-05-18] MEDS: Magnesium Chloride 64 MG TAB PO SCH ×2 (08:56→20:20)
[2018-05-18] MEDS ORDERED: Magnesium Sulfate 2 GM in Sodium Chloride 0.9% 100 ML IVPB SCH (09:45)
[2018-05-18] MEDS ORDERED: Magnesium 2 GM/NS 0.9% 100 ML 2 GM in Premix Bag 1 BAG IVPB SCH (10:15)
[2018-05-18] MEDS: Famotidine 20 MG TAB PO SCH (20:21)
[2018-05-18] MEDS: Acetaminophen 325 MG TAB PO PRN (20:34)
[2018-05-18] MEDS: diphenhydrAMINE 25 MG CAP PO PRN (20:34)
--- NOTE | 2018-05-18 22:50 | PDOC.PN ---
- Subjective Encounter Start Date: 05/18/18 Encounter Start Time: 14:00 Patient seen and examined for Sepsis. Still nauseas. Poor appetite. No new complaints. No overnight events - Objective Resuscitation Status: Resuscitation Status FULL:Full Resuscitation MAR Reviewed: Yes Vital Signs & Weight: Vital Signs (12 hours) Temp Pulse Resp BP BP Pulse Ox 05/18/18 20:17 98.0 F 73 18 124/60 93 L 05/18/18 19:05 95 05/18/18 19:03 96 05/18/18 16:35 98.1 F 67 18 117/55 L 92 L 05/18/18 11:52 98.1 F 75 18 112/56 L 93 L Weight Weight 150 lb 4.8 oz Most Recent Monitor Data Heart Rate from ECG 88 NIBP 100/57 NIBP BP-Mean 83 Respiration from ECG 19 SpO2 97 I&O: 05/17/18 05/18/18 05/19/18 06:59 06:59 06:59 Intake Total 322 262 720 Output Total 0687 062 9622 Balance -1378 -238 -380 Result Diagrams: 05/19/18 04:54 05/19/18 04:54 Additional Labs: Accuchecks 05/18/18 05/18/18 05/18/18 20:54 16:36 10:48 POC Glucose 197 H 129 H 121 H 05/18/18 06:15 POC Glucose 90 EKG Reviewed by me: Yes (Tele SR) Phys Exam - Physical Examination Constitutional: NAD HEENT: PERRLA, moist MMs oral thrush Cardiovascular: RRR, no rub Gastrointestinal: soft, non-tender, positive bowel sounds Musculoskeletal: no edema Neurological: non-focal, moves all 4 limbs Psychiatric: A&O x 3 Dx/Plan - Plan DVT proph w/SCDs IMPRESSION: 1. Severe sepsis with acute organ dysfunction/Septic shock due to E coli bacteremia/E coli UTI - on PO Levaquin 2. Oral candidiasis 3. Hypomagnesemia/Hypokalemia 4. B/L LE edema with pain - DVT ruled out 5. Chronic adrenal insufficiency 6. Other issues per previous notes PLAN: Replace Magnessium Cont Levaquin per ID DC in AM if Nausea better. If not then patient may need PICC line for IV Ceftriaxone AM labs Cont Prednisone taper Nystatin topical for oral thrush Laboratory Tests 05/18/18 03:42 Sodium 134 L BUN 26 H Creatinine 0.98 Magnesium 1.5 L Review of Systems - Review of Systems Cardiovascular: negative: chest pain, palpitations, orthopnea, paroxysmal nocturnal dyspnea, edema, light headedness, other Gastrointestinal: negative: Nausea, Vomiting, Abdominal Pain, Diarrhea, Constipation, Melena, Hematochezia, Other - Medications/Allergies Allergies/Adverse Reactions: Allergies Allergy/AdvReac Type Severity Reaction Status Date / Time ciprofloxacin [From Cipro] Allergy Verified 08/25/14 09:37 propoxyphene napsylate Allergy Verified 08/25/14 09:37 [From Darvocet-N 100] Medications: Current Medications Acetaminophen (Tylenol) 650 mg PO Q4H PRN PRN Reason: Headache/Fever or Pain Last Admin: 05/18/18 20:34 Dose: 650 mg Al Hydroxide/Mg Hydroxide (Maalox) 30 ml PO Q6H PRN PRN Reason: Heartburn or Indigestion Albuterol/Ipratropium (Duoneb) 3 ml NEB [id number] PRN PRN Reason: SOB &/or Wheezing Last Admin: 05/16/18 01:36 Dose: 3 ml Ascorbic Acid (Vitamin C) 500 mg PO DAILY RODOLFO Last Admin: 05/18/18 08:55 Dose: 500 mg Benzonatate (Tessalon) 100 mg PO Q4H PRN PRN Reason: Cough Last Admin: 05/15/18 00:46 Dose: 100 mg Bisacodyl (Dulcolax) 10 mg PO DAILYPRN PRN PRN Reason: Constipation Calcium Carbonate (Tums) 1,000 mg PO Q4H PRN PRN Reason: Heartburn or Indigestion Clonidine (Catapres) 0.1 mg PO Q4H PRN PRN Reason: Systolic BP > 160 Al Hydroxide/Mg Hydroxide 60 ml/ Lidocaine HCl 30 ml/Diphenhydramine HCl 75 mg 0 ml SSW PRN PRN PRN Reason: Mouth Irritation Last Admin: 05/18/18 05:36 Dose: 60 ml Dextrose/Water (Dextrose 50%) 25 gm SLOW IVP PRN PRN PRN Reason: Hypoglycemia Diphenhydramine HCl (Benadryl) 25 mg PO HSPRN PRN PRN Reason: Itching & Insomnia Last Admin: 08/18/18 20:34 Dose: 25 mg Famotidine (Pepcid) 20 mg PO 2100 [facility] Last Admin: 05/18/18 20:21 Dose: 20 mg Glucagon (Glucagon) 1 mg IM PRN PRN PRN Reason: Hypoglycemia Guaifenesin (Robitussin Sf) 200 mg PO Q4H PRN PRN Reason: Cough Heparin Sodium (Porcine) (Heparin) 5,000 units SC TID [facility] Last Admin: 05/18/18 20:21 Dose: 5,000 units Hydralazine HCl (Apresoline) 10 mg SLOW IVP Q4H PRN PRN Reason: Systolic BP > 170 Dextrose/Water (D5w) 1,000 mls @ 0 mls/hr IV .Q0M PRN PRN Reason: Hypoglycemia Insulin Human Lispro (Humalog) 0 units SC .MODERATE SLIDING SC PRN; Protocol PRN Reason: MODERATE SLIDING SCALE Last Admin: 05/11/18 12:05 Dose: 2 unit Levofloxacin (Levaquin) 500 mg PO 0600 [facility] Last Admin: 05/18/18 05:36 Dose: 500 mg Levothyroxine Sodium (Synthroid) 75 mcg PO 0600 [facility] Last Admin: 05/18/18 05:36 Dose: 75 mcg Magnesium Chloride (Slow-Mag) 64 mg PO BID [facility] Last Admin: 05/18/18 20:20 Dose: 64 mg Mometasone Furoate/Formoterol Fumar (Dulera 100 Mcg/5 Mcg Inhaler) 1 puff INH BID-RT [facility] Last Admin: 05/18/18 19:03 Dose: 1 puff Nitroglycerin (Nitrostat) 0.4 mg SL Q5MIN PRN PRN Reason: Chest Pain Nystatin (Mycostatin) 500,000 units SSW QID [facility] Last Admin: 05/18/18 20:21 Dose: 500,000 units Ondansetron HCl (Zofran) 4 mg IVP Q6H PRN PRN Reason: Nausea/Vomiting Last Admin: 05/18/18 04:26 Dose: 4 mg Prednisone (Prednisone) 20 mg PO BID-[facility] Last Admin: 05/18/18 16:18 Dose: 20 mg Senna (Senokot) 2 tab PO HSPRN PRN PRN Reason: Constipation Sodium Chloride (Flush - Normal Saline) 10 ml IVF Q12HR [facility] Last Admin: 05/18/18 20:22 Dose: 10 ml Sodium Chloride (Flush - Normal Saline) 10 ml IVF PRN PRN PRN Reason: Saline Flush Last Admin: 05/18/18 04:27 Dose: 10 ml Tramadol HCl (Ultram) 50 mg PO Q4H PRN PRN Reason: Moderate Pain (4-6) Last Admin: 05/17/18 20:50 Dose: 50 mg
[2018-05-19] MEDS: Aluminum & Magnesium Hydroxide 60 ML, Lidocaine 2% Viscous Solution 30 ML, diphenhydrAM... SSW PRN (01:53)
[2018-05-19 05:49] LABS: #Eosinphils 0.1 thou/uL (0.0-0.7); #Lymphocytes 2.1 thou/uL (1.20-3.40); #Monocytes 0.9 thou/uL (0.11-0.59); #Neutrophils 9.8 thou/uL (1.40-6.50); %Basophils 0.3 % (0.0-1.0); %Eosinophils 0.4 % (0.0-10.0); %Lymphocytes 16.2 % (21.0-51.0); %Neutrophils 76.1 % (42.0-75.0); Hemoglobin 10.3 g/dL (12.0-16.0); Mean Corpuscular HGB CONC 34.6 g/dL (32.0-36.0); Mean Corpuscular Hemoglobin 34.4 pg (27.0-31.0); Mean Corpuscular Volume 99.5 fL (78.0-98.0); Mean Platelet Volume 6.5 fL (7.4-10.4); Platelet Count 382 thou/uL (130-400); RBC Distribution Width 12.8 % (11.5-14.5); Red Blood Cell (RBC) Count 2.98 mill/uL (4.20-5.40); White Blood Cell (WBC) Count 12.9 thou/uL (4.8-10.8)
[2018-05-19 06:07] LABS: Anion Gap 11 mmol/L (10-20); BUN (Urea Nitrogen) 26 mg/dL (9.8-20.1); Calc. Creatinine Clearance 55 mL/min (70-130); Calcium 8.7 mg/dL (7.8-10.44); Carbon Dioxide 24 mmol/L (23-31); Chloride 102 mmol/L (98-107); Estimated GFR-MDRD 57; Glucose 90 mg/dL (83-110); Magnesium 1.8 mg/dL (1.6-2.6); Potassium 4.1 mmol/L (3.5-5.1); Sodium 133 mmol/L (136-145)
[2018-05-19] MEDS: Levothyroxine Sodium 75 MCG TAB PO SCH (06:19)
[2018-05-19] MEDS: traMADol HCl 50 MG TAB PO PRN (06:23)
[2018-05-19] MEDS: Mometasone/Formoterol 120 PUFF INHALER INH SCH (06:46)
[2018-05-19] MEDS: predniSONE 20 MG TAB PO SCH (08:02)
[2018-05-19] MEDS: Magnesium Chloride 64 MG TAB PO SCH (08:02)
[2018-05-19] MEDS: Ascorbic Acid 500 mg Chewable Tablet PO SCH (08:02)
[2018-05-19] MEDS: Nystatin 500,000 UNITS/5 ML UDCUP SSW SCH ×2 (08:02→12:59)
[2018-05-19] MEDS: Heparin 5,000 UNITS/ML VIAL SC SCH (08:03)
[2018-05-19] MEDS: Acetaminophen 325 MG TAB PO PRN (10:41)
--- NOTE | 2018-05-19 12:02 | DIS ---
DATE OF ADMISSION: 05/09/2018 DATE OF DISCHARGE: 05/19/2018 DISCHARGE DISPOSITION: Home. FOLLOWUP: 1. Follow up with primary care physician, Elvia Rebollar M.D. in 1 week. 2. Follow up with Dr. Miller in 10 days. ALLERGIES: The patient is allergic to CIPROFLOXACIN and DARVOCET. The patient was seen and examined on the day of discharge, denies any new complaints, no chest pain, shortness of breath, palpitations, fever or chills reported. Nausea has significantly improved. BRIEF HOSPITAL COURSE: The patient is a 72-year-old female with chronic adrenal insufficiency, prese nted to the hospital with suprapubic pain with fever, chills as well as generalized weakness. Her wo rkup was consistent with sepsis secondary to urinary tract infection. Please refer to the history an d physical for further details. The patient was admitted to the Intensive Care Unit with a diagnosis of severe sepsis/septic shock. She was started on stress dose steroid along with vasopressors and empiric antibiotics. Her blood cu lture 2 of 2 was positive for E. coli, sensitive to quinolones. The E. coli was resistant to Bactrim , ampicillin and ampicillin/sulbactam. Urine cultures showed the same organism. Later on, she was t ransferred to the telemetry unit. Per Infectious Disease recommendation, her antibiotics were change d to Levaquin oral. Over the last 2-3 days, the patient has been able to tolerate Levaquin with some nausea and intermittent vomiting. Today, on the day of discharge, she feels much better. She will continue Levaquin at home and will complete a total of 2 weeks treatment for E. coli bacteremia/UTI. Prednisone has been gradually tapered. She was advised to continue tapering down prednisone by 5 mg every 3-4 days to her home dose. She was also found to have oral thrush and has been started on flu conazole per Infectious Disease recommendation. She has been cleared by consultants for discharge. She also had renal failure with creatinine 3.99 on admission that has significantly improved. Her cr eatinine on the day of discharge is 0.9. SIGNIFICANT LABORATORY DATA: On admission, sodium was 133, bicarbonate of 15, anion gap 24, BUN 47, creatinine 3.99, lactic acid 7.5, magnesium 1.2, CK of 632. Troponin 0.043, total bilirubin 1.8. TS H 2.7. Urinalysis showed greater than 50 WBCs with 4+ bacteria. ABG showed pH 7.33 with pCO2 22.3, pO2 70.1, bicarbonate of 11.4. WBC maximum was 24.8 with 30% bandemia The plan of care was discussed with the patient in detail. She stated understanding. FINAL DIAGNOSES: 1. Severe sepsis with acute organ dysfunction/septic shock secondary to Escherichia coli bacteremia/ Escherichia coli urinary tract infection. 2. Oral candidiasis. 3. Acute kidney injury on chronic kidney disease stage 3, resolved. 4. Lactic acidosis. 5. Hypomagnesemia. 6. Hypokalemia. 7. Hyponatremia. 8. Abnormal liver function tests secondary to sepsis, resolved. 9. Abnormal cardiac enzymes secondary to demand ischemia from sepsis. 10. Chronic anemia. 11. Chronic adrenal insufficiency. 12. Elevated CK. 13. Bilateral lower extremity edema secondary to volume overload. Dopplers were negative for deep v ein thrombosis. Total time coordinating the discharge of this patient was 33 minutes.
[2018-05-19 13:03] VITALS: BP 133/61; TEMP 97.5
--- NOTE | 2018-05-22 16:03 | EKG ---
Test Reason : Blood Pressure : / mmHG Vent. Rate : 109 BPM Atrial Rate : 109 BPM P-R Int : 132 ms QRS Dur : 060 ms QT Int : 316 ms P-R-T Axes : 078 000 068 degrees QTc Int : 425 ms Sinus tachycardia Possible Left atrial enlargement Borderline ECG Confirmed by DAVID MATTHEWS, AYSHA ([id number]), scientific editor VONDA DUNLAP ([id number] on 05/22/2018 4:02:22 PM Referred By: DAVID Confirmed By:AYSHA HERNANDEZ MD
== END 2018-05-19 13:48 | disposition home or self-care (01) | DRG 871 ==
LOC: ERS 09:37 → CCU 11:38 → 2NO 05-11 15:40
PROVIDERS: ADMIT Internal Medicine; ATTEND Internal Medicine
PROC: 02HV33Z Insertion of Infusion Device into Superior Vena Cava, Percutaneous Approach (ICD-10-PCS; principal; 2018-05-09)
DX: A41.51 Sepsis due to Escherichia coli [E. coli] (principal); R65.21 Severe sepsis with septic shock; N39.0 Urinary tract infection, site not specified; E27.1 Primary adrenocortical insufficiency; N17.9 Acute kidney failure, unspecified; E87.2 Acidosis; M62.82 Rhabdomyolysis; E87.1 Hypo-osmolality and hyponatremia; B37.0 Candidal stomatitis; I24.8 Other forms of acute ischemic heart disease; E03.9 Hypothyroidism, unspecified; N18.3 Chronic kidney disease, stage 3 (moderate); E87.6 Hypokalemia; E87.70 Fluid overload, unspecified; E83.42 Hypomagnesemia; D64.9 Anemia, unspecified; J45.909 Unspecified asthma, uncomplicated; Z88.1 Allergy status to other antibiotic agents; Z88.5 Allergy status to narcotic agent; Z79.52 Long term (current) use of systemic steroids; Z79.899 Other long term (current) drug therapy
CPT/HCPCS: 36415; 36416; 36556; 51702; 71045; 74176; 80048; 80053; 81003; 81015; 82550; 82553; 82805; 83605; 83690; 83735; 84443; 84484; 85025; 87040; 87077; 87086; 87149; 87186; 93005; 93306; 93970; 94640; 94760; 96365; 96366; 96367; 96375; 99213; A4216; G0463; G8978-GP-CK; G8979-GP-CI; G8987-GO-CK; G8988-GO-CJ; J0696; J1580; J1644; J1720; J1940; J2405; J2543; J2930; J2997; J3370; J3475; J3480; J7050; J7506; J7620